=== PATIENT | female | born 1990 | race Caucasian/White ===

== ENCOUNTER → 2017-08-19 15:54 | Outpatient (CLI) | payer OTHER, MEDICAID, SELFPAY ==
[2017-08-19 16:06] LABS: Bacteria Urine None Seen
[2017-08-19 16:28] LABS: Add Manual Diff / Slide Review NO; Basophils Percent Auto 0.5 % (0-2); Eosinophils Percent Auto 0.5 % (2-4); Hematocrit 36.5 % (36-46); Hemoglobin 12.9 g/dL (12.0-16.0); Lymphocytes Percent Auto 26.1 % (25-40); Mean Corpuscular HGB Conc 35.2 % (30-36); Mean Corpuscular Volume 85.2 fL (80-100); Monocytes Percent Auto 10.5 % (3-14); Neutrophils Absolute Auto 5700 /uL (3000-5900); Neutrophils Percent Auto 62.4 % (50-75); Platelet Count 260 X10^3/uL (150-400); Red Blood Cell Count 4.29 X10^6/uL (4.0-5.2); Red Cell Distribution Width 12.7 % (11.6-14.8); White Blood Cell Count 9.1 X10^3/uL (4.5-11.0)
[2017-08-19 17:06] LABS: Appearance Urine UA CLEAR; Bilirubin Urine UA NEGATIVE (NEGATIVE); Color Urine UA YELLOW; Glucose Urine UA NEGATIVE (Normal); Ketones Urine UA NEGATIVE (NEGATIVE); Leukocyte Esterase Urine UA TRACE (NEGATIVE); Nitrite Urine UA Negative (Negative); Occult Blood Urine UA 1+ (Negative); Protein Urine UA NEGATIVE (Negative); Urobilinogen Urine UA 0.2 E.U./dL (0.2)
[2017-08-19 17:25] LABS: Hepatitis B Surface Antigen NEGATIVE s/c (NEGATIVE); Rubella Antibody IgG 33.1 IU/mL (>15)
[2017-08-19 17:42] LABS: RBC Urine 0-1/HPF (0-5/HPF); WBC Urine 0-1/HPF (0-5/HPF)
[2017-08-23 15:40] LABS: Varicella IgG Antibody > 4000.00 Index (< 135.00)
== END ==
PROVIDERS: Family Provider Family Medicine; PCP Family Medicine; Visit Provider Family Medicine
DX: Z34.90 Encounter for supervision of normal pregnancy, unspecified, unspecified trimester (principal)
CPT/HCPCS: 36415; 80055; 81001; 86787; 86850; 86900; 86901

== ENCOUNTER → 2017-09-05 10:21 | Outpatient (CLI) | payer OTHER, MEDICAID, SELFPAY ==
[2017-09-05 12:22] LABS: TSH w/ Reflex to FT4 0.34 uIU/mL (0.47-4.68)
[2017-09-05 12:47] LABS: Free T4, Direct Thyroxine 1.37 ng/dL (0.78-2.19)
== END ==
PROVIDERS: PCP Family Medicine; Visit Provider Family Medicine
DX: Z36.9 Encounter for antenatal screening, unspecified (principal); Z3A.10 10 weeks gestation of pregnancy
CPT/HCPCS: 36415; 84439; 84443

== ENCOUNTER → 2017-09-08 11:47 | Oncology outpatient (ONC) | payer OTHER, MEDICAID, SELFPAY ==
[2017-09-08 12:00] VITALS: BP 116/63; PULSE 70; RESP 16; TEMP 36.6
[2017-09-08] MEDS: LACTATED RINGERS 1,000 ML 1000 ML IV (12:09)
[2017-09-08] MEDS: ONDANSETRON 4 MG/2 ML INJ IV (12:10)
== END ==
LOC: ONC 11:47
PROVIDERS: Family Provider Family Medicine; PCP Family Medicine; Visit Provider Specialist
DX: O21.0 Mild hyperemesis gravidarum (principal)
CPT/HCPCS: 96361; 96374; 96375; J2405

== ENCOUNTER 2017-10-23 17:52 | Emergency (ER) | payer OTHER, MEDICAID, SELFPAY ==
[2017-10-23 17:56] VITALS: BP 116/73; PULSE 86; RESP 20; TEMP 36.7; O2SAT 96; BMI 22.8
--- NOTE | 2017-10-23 20:06 | ED_ITS ---
HPI - Female Genitourinary General Chief complaint: Urogenital-Female Stated complaint: 16 WEEKS PREG. CRAMPING Time Seen by Provider: 10/23/17 19:39 Source: patient Mode of arrival: ambulatory Limitations: no limitations History of Present Illness HPI Narrative: The patient is , currently 16 weeks . She is here due to lower abdominal cramping that has been intermittent for about 2 weeks. She is just coming through a period where she has had extreme nausea and vomiting, though symptoms have improved dramatically in the last week. She is controlling hydration better, but still had dark yellow urine this morning. She had mild dysuria. She has no fever or chills. She has no nausea, vomiting or diarrhea today. She is not prone to UTI. She has not yet feeling motion, but did have heart tones documented in clinic recently. She has no vaginal discharge or vaginal bleeding. She is unsure if activity increases the amount of cramping, she currently has no cramping. Related Data Previous Rx's Medication Instructions Recorded vit-iron fum-folic ac 1 cap PO QDAY #30 cap 05/24/17 [Mynatal] metronidazole 500 mg PO BID #14 tab 05/31/17 ondansetron HCl 4 mg tablet 4 mg PO Q6H PRN #20 tab 08/19/17 promethazine 25 mg rectal 25 mg UT Q6H PRN #12 each 09/08/17 suppository Allergies Allergy/AdvReac Type Severity Reaction Status Date / Time No Known Drug Allergies Allergy Verified 08/24/17 16:09 Review of Systems Review of Systems All systems reviewed & are unremarkable except as noted in HPI and below Constitutional Denies chills, Denies fever(s), Denies lethargy and Denies weakness Cardiovascular Denies chest pain, Denies irregular heart rhythm, Denies lightheadedness, Denies palpitations, Denies dyspnea, Denies dyspnea on exertion and Denies orthopnea Respiratory Denies cough, Denies dyspnea, Denies dyspnea on exertion and Denies wheezing Gastrointestinal Gastrointestinal: Reports as per HPI, Denies abdominal pain, Denies change in bowel habits, Denies diarrhea, Denies nausea and Denies vomiting Genitourinary Reports as per HPI, Denies hematuria, Denies flank pain, Denies urinary incontinence and Denies vaginal discharge Musculoskeletal Reports back pain, Denies muscle weakness, Denies numbness and Denies tingling Integumentary/Breasts Denies erythema, Denies rash and Denies wounds Neurologic Denies numbness, Denies tingling and Denies weakness Endocrine Denies palpitations Allergic/Immunologic Denies wheezing [facility] Social History Smoking Status: Never smoker Exam Initial Vital Signs Initial Vital Signs: Vital Signs Temperature 98.1 F 10/23/17 17:56 Pulse Rate 86 10/23/17 17:56 Respiratory Rate 20 10/23/17 17:56 Blood Pressure 116/73 10/23/17 17:56 Pulse Oximetry 96 10/23/17 17:56 Const General: cooperative and well developed Nutritional Appearance: well nourished Orientation: alert, awake, oriented x3 and not confused HENMT Head: normocephalic and atraumatic Nose: No nasal discharge Face and sinus: sinuses nontender, face symmetric, no sinus tenderness and No dry mucous membranes Mouth: oral mucosae normal and moist mucous membranes Teeth and gingiva: dentition normal Throat: tonsils normal and uvula midline Resp Effort & Inspection: normal respiratory effort, able to speak in complete sentences, no respiratory distress and no use of accessory muscles Auscultation: clear to auscultation bilaterally, no rales, no rhonchi and no wheezes Cardio Rate: regular rate Rhythm: regular rhythm Heart Sounds: no click, no gallops, no murmurs and no rubs Pulses: normal peripheral pulses GI Inspection: non-distended and other Palpation: soft, no hepatosplenomegaly and No tender Auscultation: normal bowel sounds Back/Spine/Pelvis Back: No CVA tenderness Course Orders Ordered: ED Orders 10/23/17 19:54 Urine Microscopic Stat Vital Signs - 8 hr 10/23/17 17:56 Temperature 98.1 F Pulse Rate 86 Respiratory Rate 20 Blood Pressure 116/73 Pulse Oximetry 96 MDM - Female Genitourinary Lab Data Attestation: I reviewed the patient's lab results. POC UA shows specific gravity of 1.030 and protein. There is no leukocytosis or nitrates. Discharge Plan Departure Patient Disposition: Home, Self-Care Clinical Impression: Discomfort during Instructions: DI for -- Discomforts and Remedies Activity Restrictions/Additional Instructions: Be sure your drinking enough water to maintain hydration as we discussed. Follow-up with Dr. Hayward or return here as needed for ongoing issues. Prescriptions: No Action vit-iron fum-folic ac [Mynatal] 1 EACH capsule 1 cap PO QDAY Qty: 30 RF: 12 metronidazole 500 MG tablet 500 mg PO BID Qty: 14 RF: 0 ondansetron HCl [Zofran] 4 mg tablet 4 mg PO Q6H PRN (Reason: nausea) Qty: 20 RF: 0 promethazine 25 mg suppository 25 mg UT Q6H PRN (Reason: Hyperemesis) Qty: 12 RF: 3
[2017-10-23 20:10] VITALS: BP 104/69; PULSE 73; RESP 20; O2SAT 100
[2017-10-23 20:19] LABS: Amorphous Sediment Urine 1+; Bacteria Urine Moderate (10-30); Mucus Urine 1+ (Negative); RBC Urine 1-5/HPF (0-5/HPF); Squamous Epithelial Cell Urine 5-10 /HPF; WBC Urine 5-10/HPF (0-5/HPF)
[2017-10-23 20:20] LABS: Culture Indicated Urine Specimen Cultured
== END 2017-10-23 20:11 | disposition home or self-care (01) ==
PROVIDERS: Emergency Provider Emergency Medicine; PCP Family Medicine
DX: R68.89 Other general symptoms and signs (principal); Z3A.16 16 weeks gestation of pregnancy
CPT/HCPCS: 81003; 81015; 87086; 99282

== ENCOUNTER → 2017-10-27 09:32 | Outpatient (CLI) | payer OTHER, MEDICAID, SELFPAY ==
[2017-11-02 05:13] LABS: AFP, Serum 37.5 ng/mL; Calc Gestational Age 16.3; Cigarette Smoker N; Donated Egg NOT GIVEN; Donor Egg Age NOT GIVEN; Estriol, Free 0.79 ng/mL; Inhibin A, Dimeric 120 pg/mL; Maternal Weight 145 lbs; Number of Fetuses NOT GIVEN; Previous Pregnancy Down Syndro NOT GIVEN; hCG, MoM 1.28; hCG, Serum 42.4 IU/mL
== END ==
PROVIDERS: PCP Family Medicine; Visit Provider Family Medicine
DX: Z3A.16 16 weeks gestation of pregnancy (principal)
CPT/HCPCS: 36415; 82105; 82677; 84702; 86336

== ENCOUNTER → 2017-11-24 12:28 | Outpatient (CLI) | payer OTHER, MEDICAID, SELFPAY ==
--- NOTE | 2017-11-24 12:30 | DI.US.S_ITS ---
PROCEDURE: US OB >= 14 WEEKS FETUS INDICATIONS: ANATOMIC SURVEY OUTSIDE/PRIOR DATING DATA: Last menstrual period (LMP): Not known. LMP-based estimated date of delivery (DIEGO): Not known. First dating scan (date and location): 08/17/17 Estimated date of delivery (DIEGO) from first dating scan: April 09, 2018. TECHNIQUE: Real-time scanning was performed of the fetus, with image documentation and biometric measurements. Endovaginal scanning: No COMPARISON: [facility], OB < 14 WEEKS + OB TRANSVAG, 08/17/2017, 18:11. [facility], OB <= 14 WEEKS FETUS, 09/05/2017, 9:45. FINDINGS: General: A single living intrauterine gestation is present. Presentation: Transverse. Placenta: Placental position is anterior, and low lying with the inferior tip 1.5 cm above the internal cervical os. Amniotic fluid index: 13.4 cm, normal range is 5-24 cm. heart rate: 149 beats per minute. Maternal cervical canal: 5.4 cm long. Normal lower limit is 2.5 cm. biometrics: Biparietal diameter: 20 weeks 6 days Head circumference: 20 weeks 5 days Abdominal circumference: 21 weeks 1 day Femur length: 21 weeks 4 days Estimated gestational age from initial scan: 20 weeks 5 days Composite gestational age from present scan: 21 weeks 1 day Estimated weight and percentile: 410 g; 74th percentile based on LMP. Measurement variability for biometric dating: +/- 7 days from 14 weeks to 15 weeks 6 days gestation, +/- 10 days from 16 weeks to 21 weeks 6 days gestation, +/- 2 weeks from 22 weeks to 27 weeks 6 days gestation, +/- 3 weeks for 28 weeks gestation or later. weight reference: 4500 g or EFW >90/95% is considered macrosomia or large for gestational age. EFW <10% is small for gestational age. EFW 5% or less is considered intra-uterine growth restriction. Anatomic survey: Neuro: Ventricles are non-dilated at less than 10 mm. Cisterna magna is normal at 3-11 mm. Cerebellum is normal in size and morphology. Nuchal skin fold: Normal at less than 6 mm between 14-21 weeks gestational age. Face: Nose and lips, facial profile are normal. Spine: No evidence for spina bifida. Heart: 4-chambered heart is present, with normal ventricular outflow tracts. Diaphragm: Diaphragm is intact. Stomach: Left-sided stomach is present. Kidneys: No hydronephrosis. Normal is less than 5 mm in 2nd trimester, less than 7 mm in 3rd trimester. Cord: 3-vessel cord has orthotopic insertion. Bladder: Normal in size. Extremities: All 4 extremities identified. IMPRESSION: 1. Single living IUP present with composite age today is 21 weeks 1 day corresponding to normal interval growth. 2. Normal anatomic survey. 3. Low-lying placenta. Followup recommended. Dictated by: Amador AVINA Interpreted: Ivanna Rashid MD on 11/24/2017 at 15:34 Approved by: Junior De La Rosa M.D. on 11/25/2017 at 14:45
== END ==
PROVIDERS: PCP Family Medicine; Visit Provider Family Medicine
DX: Z36.89 Encounter for other specified antenatal screening (principal); Z3A.21 21 weeks gestation of pregnancy
CPT/HCPCS: 76811

== ENCOUNTER → 2018-01-12 15:26 | Outpatient (CLI) | payer OTHER, MEDICAID, SELFPAY ==
[2018-01-12 15:30] LABS: Bacteria Urine None Seen; RBC Urine None Seen (0-5/HPF)
[2018-01-12 16:59] LABS: Appearance Urine UA CLEAR; Bilirubin Urine UA NEGATIVE (NEGATIVE); Color Urine UA YELLOW; Glucose Urine UA 1+ g/dL (Normal); Ketones Urine UA NEGATIVE (NEGATIVE); Leukocyte Esterase Urine UA NEGATIVE (NEGATIVE); Nitrite Urine UA NEGATIVE (Negative); Occult Blood Urine UA NEGATIVE (Negative); Protein Urine UA NEGATIVE (Negative); Urobilinogen Urine UA 0.2 E.U./dL (0.2)
[2018-01-12 17:18] LABS: Squamous Epithelial Cell Urine 1-5 /HPF; WBC Urine 0-1/HPF (0-5/HPF)
== END ==
PROVIDERS: Family Provider Family Medicine; PCP Family Medicine
DX: R39.9 Unspecified symptoms and signs involving the genitourinary system (principal)
CPT/HCPCS: 81001

== ENCOUNTER → 2018-01-16 10:14 | Outpatient (CLI) | payer OTHER, MEDICAID, SELFPAY ==
[2018-01-16 12:58] LABS: Hematocrit 33.6 % (36-46); Hemoglobin 11.6 g/dL (12.0-16.0)
[2018-01-16 13:07] LABS: GTT (PREG) 1 Hour PP 50gm Dose 83 mg/dL (76-139)
== END ==
PROVIDERS: PCP Family Medicine; Visit Provider Family Medicine
DX: Z34.82 Encounter for supervision of other normal pregnancy, second trimester (principal); Z3A.24 24 weeks gestation of pregnancy
CPT/HCPCS: 36415; 82950; 85014; 85018

== ENCOUNTER 2018-02-17 16:20 | Outpatient (CLI) | payer OTHER, MEDICAID, SELFPAY ==
--- NOTE | 2018-02-17 17:01 | PM.OBTRLD ---
Visit Information Visit Information Date of evaluation: 02/17/18 Primary OB Provider: Roger Orellana On-call OB Provider: Heaven Miller Reason for Evaluation: Yes rule out labor Comments/Additional reasons for admission: Pt with lower abdominal cramping present throughout the day. She also has felt that she is urinating more frequently than usual. No bleeding or LOF. Cramping is more constant, not intermittent. [facility] Social History Smoking Status: Never smoker Evaluation Evaluation Baseline heart rate: 140 Variability: Moderate (11-25) monitor accelerations: Present monitor decelerations: Absent Category of Tracing: I Comments: No significant contractions, mild uterine irritability Diagnosis, Plan/Disposition Final Diagnosis (1) Round ligament pain: Current Visit: Yes Status: Acute Plan/Disposition Plan: Pain most consistent with round ligament pain. No evidence labor. U/A negative. Discussed heat, tylenol PRN, stretches. OB Disposition: home
--- NOTE | 2018-02-17 17:05 | P.TNLD_ITS ---
Visit Information Visit Information Date of evaluation: 02/17/18 Primary OB Provider: Roger Orellana On-call OB Provider: Heaven Miller Reason for Evaluation: Yes rule out labor Comments/Additional reasons for admission: Pt with lower abdominal cramping present throughout the day. She also has felt that she is urinating more frequently than usual. No bleeding or LOF. Cramping is more constant, not intermittent. [facility] Social History Smoking Status: Never smoker Evaluation Evaluation Baseline heart rate: 140 Variability: Moderate (11-25) monitor accelerations: Present monitor decelerations: Absent Category of Tracing: I Comments: No significant contractions, mild uterine irritability Diagnosis, Plan/Disposition Final Diagnosis (1) Round ligament pain: Current Visit: Yes Status: Acute Plan/Disposition Plan: Pain most consistent with round ligament pain. No evidence labor. U/A negative. Discussed heat, tylenol PRN, stretches. OB Disposition: home
== END 2018-02-17 17:00 | disposition home or self-care (01) ==
LOC: LABOR 16:44 → OB 02-21 08:51
PROVIDERS: Family Provider Family Medicine; PCP Family Medicine; Visit Provider Family Medicine
DX: Z34.83 Encounter for supervision of other normal pregnancy, third trimester (principal); Z3A.32 32 weeks gestation of pregnancy; N94.9 Unspecified condition associated with female genital organs and menstrual cycle
CPT/HCPCS: 59025; G0378; G0379

== ENCOUNTER 2018-02-21 14:40 | Outpatient (CLI) | payer OTHER, MEDICAID, SELFPAY | END 2018-02-21 15:25 | disposition home or self-care (01) | LOC: LABOR 15:24 → OB 02-22 12:45 | PROVIDERS: Family Provider Family Medicine; PCP Family Medicine; Visit Provider Family Medicine | DX: Z34.83 Encounter for supervision of other normal pregnancy, third trimester (principal); Z3A.33 33 weeks gestation of pregnancy | CPT/HCPCS: 59025; G0378; G0379 ==

== ENCOUNTER → 2018-02-23 09:19 | Outpatient (CLI) | payer OTHER, MEDICAID, SELFPAY ==
--- NOTE | 2018-02-23 09:20 | DI.US.S_ITS ---
PROCEDURE: US OB LIMITED INDICATIONS: low lying placenta with hemorrage OUTSIDE/PRIOR DATING DATA: Last menstrual period (LMP): Not known. LMP-based estimated date of delivery (DIEGO): Not known. First dating scan (date and location): 08/17/17 Estimated date of delivery (DIEGO) from first dating scan: April 09, 2018. TECHNIQUE: Real-time scanning was performed of the fetus, with image documentation and biometric measurements. Endovaginal scanning: No COMPARISON: None. FINDINGS: General: A single living intrauterine gestation is present. Presentation: Vertex. Placenta: Placental position is anterior, without previa. Amniotic fluid index: 9.5 cm, normal range is 5-24 cm. heart rate: 127 beats per minute. Maternal cervical canal: 3.1 cm long. Normal lower limit is 2.5 cm. IMPRESSION: 1. Single living IUP redemonstrated and low lying placenta has resolved with the inferior margin of the placenta now well above the internal cervical os. Dictated by: Amador Wolff [facility] Interpreted: Junior De La Rosa MD on 02/23/2018 at 11:28 Approved by: Junior De La Rosa M.D. on 02/23/2018 at 12:34
== END ==
PROVIDERS: Family Provider Family Medicine; PCP Family Medicine; Visit Provider Family Medicine
DX: O44.52 Low lying placenta with hemorrhage, second trimester (principal)
CPT/HCPCS: 76815

== ENCOUNTER 2018-03-11 10:48 | Outpatient (CLI) | payer OTHER, MEDICAID, SELFPAY ==
--- NOTE | 2018-03-11 11:15 | PM.OBTRLD ---
Visit Information Visit Information Date of evaluation: 03/11/18 Primary OB Provider: Roger Orellana On-call OB Provider: Kate Bain Reason for Evaluation: Yes other Comments/Additional reasons for admission: Patient comes in complaining of edema cannot get her ring off her hand Vital Signs Vital Signs: Blood pressure 118/67, pulse 78 PFSH Social History Smoking Status: Never smoker Review of Systems Review of Systems Patient denies headaches, scotomata, epigastric pain. She has been having some mild cramping. No leakage of fluid. Good movement. No fevers. Patient complains of being unable to remove her ring due to swelling. All systems reviewed & are unremarkable except as noted in HPI and below Exam Narrative Exam Narrative: Patient with minimal edema. DTRs are normal. Abdomen is soft, nontender. Evaluation Evaluation Baseline heart rate: 135 Variability: Moderate (11-25) monitor accelerations: Present monitor decelerations: Absent Category of Tracing: I Diagnosis, Plan/Disposition Final Diagnosis (1) Edema during in third trimester: Current Visit: Yes Status: Acute Plan/Disposition Plan: Patient with mild edema but no other evidence of preeclampsia. Patient is to avoid salt. Signs and symptoms of preeclampsia reviewed with the patient. Keep her prior scheduled OB appointment. OB Disposition: home
== END 2018-03-11 11:30 | disposition home or self-care (01) ==
LOC: OB 03-15 13:12
PROVIDERS: Family Provider Family Medicine; PCP Family Medicine; Visit Provider Specialist
DX: Z34.83 Encounter for supervision of other normal pregnancy, third trimester (principal); Z3A.35 35 weeks gestation of pregnancy
CPT/HCPCS: 59025; G0378; G0379

== ENCOUNTER 2018-03-11 11:24 | Emergency (ER) | payer OTHER, MEDICAID, SELFPAY ==
[2018-03-11 11:29] VITALS: BP 114/75; PULSE 90; RESP 14; TEMP 36.4; O2SAT 100
--- NOTE | 2018-03-11 12:15 | ED.EXTPRO ---
HPI - Extremity Problem General Chief complaint: Extremity Problem,Nontraumatic Stated complaint: 35 WKS PREG,RING STUCK ON FINGER Time Seen by Provider: 03/11/18 11:30 Source: patient Mode of arrival: ambulatory Limitations: no limitations History of Present Illness HPI Narrative: 27-year-old at 35 weeks presents with a swollen right ring finger and a ring stuck on the finger. She states her hands and feet have been swelling over the past week or 2 and she noted the ring was stuck this morning. She has a little bit of pain and tingling in her finger but denies any injury and is otherwise well MD Complaint: extremity pain and extremity swelling Onset (ago): hour(s) Pain Consistency: constant Location: right Quality: aching Radiation: none Relieving factors: nothing Exacerbating factors: nothing Associated symptoms: denies other symptoms Related Data Previous Rx's Medication Instructions Recorded vit-iron fum-folic ac 1 cap PO QDAY #30 cap 05/24/17 [Mynatal] metronidazole 500 mg PO BID #14 tab 05/31/17 ondansetron HCl 4 mg tablet 4 mg PO Q6H PRN #20 tab 08/19/17 promethazine 25 mg rectal 25 mg PA Q6H PRN #12 each 09/08/17 suppository Allergies Allergy/AdvReac Type Severity Reaction Status Date / Time No Known Drug Allergies Allergy Verified 08/24/17 16:09 Review of Systems Review of Systems All systems reviewed & are unremarkable except as noted in HPI and below Constitutional Denies chills, Denies fever(s), Denies lethargy and Denies weakness Eyes Denies change in vision, Denies eye discharge, Denies irritation and Denies loss of vision ENT Ears, Nose, Mouth, and Throat: Denies change in voice, Denies neck pain and Denies sore throat Cardiovascular Denies chest pain, Denies irregular heart rhythm, Denies lightheadedness, Denies palpitations, Denies dyspnea, Denies dyspnea on exertion and Denies orthopnea Respiratory Denies cough, Denies dyspnea, Denies dyspnea on exertion and Denies wheezing Gastrointestinal Gastrointestinal: Denies abdominal pain, Denies change in bowel habits, Denies diarrhea, Denies nausea and Denies vomiting Genitourinary Denies hematuria, Denies flank pain, Denies urinary incontinence and Denies urinary urgency Musculoskeletal Denies neck pain Comments: Swelling and pain of right ring finger Integumentary/Breasts Denies pruritus, Denies erythema, Denies rash and Denies wounds Neurologic Denies confusion, Denies loss of vision and Denies weakness Psychiatric Denies anxiety, Denies confusion, Denies depression, Denies homicidal ideation and Denies suicidal ideation Endocrine Denies palpitations Hematologic/Lymphatic Denies easy bruising Allergic/Immunologic Denies wheezing PFSH Social History Smoking Status: Never smoker Exam Narrative Exam Narrative: GEN: 27-year-old female resting comfortably in no obvious significant distress EYES: Pupils are equal, round, and reactive to light and accommodation. Extraoccular muscles are intact bilaterally. There is no subconjunctival hemorrhage or exudate. CHEST: Lungs are clear to auscultation bilaterally and free of wheezes, rales, or rhonchi. Heart rate is regular rhythm, there are no murmurs, clicks, rubs, or gallops. There is no chest wall tenderness. ABD: Abdomen is soft and nontender. There is no guarding or rebound. Bowel sounds are normal in all 4 quadrants. There is no mass or organomegaly. EXT: Mild edema of hands. R ring finger with some erythema and a tight silver ring. Full ROM, no numbness or tingling SKIN: Warm, pink, and dry. No erythema or rash Initial Vital Signs Initial Vital Signs: Vital Signs Temperature 97.6 F 03/11/18 11:29 Pulse Rate 90 03/11/18 11:29 Respiratory Rate 14 03/11/18 11:29 Blood Pressure 114/75 03/11/18 11:29 Pulse Oximetry 100 03/11/18 11:29 Course Reevaluation(s) Reevaluation #1: Ring was removed successfully by nursing. Symptoms have resolved. Vital Signs - 8 hr 03/11/18 11:29 Temperature 97.6 F Pulse Rate 90 Respiratory Rate 14 Blood Pressure 114/75 Pulse Oximetry 100 Discharge Plan Departure Patient Disposition: Home Clinical Impression: Constrictive jewelry of finger Activity Restrictions/Additional Instructions: *You have been diagnosed with [ constrictive joule re-of right ring finger ] *What to do: * continue to take medications as directed *Follow up with your primary care provider in 2-3 days, call for an appointment. Let them know you were seen in the Emergency Department and that we ask that you be seen in follow up *Return to ER if you should have any new, worsening or concerning symptoms Prescriptions: No Action vit-iron fum-folic ac [Mynatal] 1 EACH capsule 1 cap PO QDAY Qty: 30 RF: 12 metronidazole 500 MG tablet 500 mg PO BID Qty: 14 RF: 0 ondansetron HCl [Zofran] 4 mg tablet 4 mg PO Q6H PRN (Reason: nausea) Qty: 20 RF: 0 promethazine 25 mg suppository 25 mg PA Q6H PRN (Reason: Hyperemesis) Qty: 12 RF: 3
[2018-03-11 12:48] VITALS: BP 115/66; PULSE 89; RESP 18; O2SAT 98
== END 2018-03-11 12:49 | disposition home or self-care (01) ==
PROVIDERS: Emergency Provider Emergency Medicine; Family Provider Family Medicine; PCP Family Medicine
DX: S60.444A External constriction of right ring finger, initial encounter (principal); W49.04XA Ring or other jewelry causing external constriction, initial encounter
CPT/HCPCS: 59025; 99282

== ENCOUNTER 2018-03-18 10:27 | Outpatient (CLI) | payer OTHER, MEDICAID, SELFPAY | END 2018-03-18 12:17 | disposition home or self-care (01) | LOC: LABOR 11:06 → OB 03-22 08:41 | PROVIDERS: Family Provider Family Medicine; PCP Family Medicine; Visit Provider Family Medicine | DX: O26.893 Other specified pregnancy related conditions, third trimester (principal); R07.81 Pleurodynia; Z3A.36 36 weeks gestation of pregnancy | CPT/HCPCS: 59025; 59050; G0378; G0379 ==

== ENCOUNTER 2018-03-18 12:27 | Emergency (ER) | payer OTHER, MEDICAID, SELFPAY ==
[2018-03-18 12:30] VITALS: BP 126/65; PULSE 85; RESP 20; TEMP 36.3; O2SAT 97
--- NOTE | 2018-03-18 13:30 | ED.ABDPAIN ---
HPI - Abdominal Pain <Ada Johns PA-C - Last Filed: 03/18/18 21:31> General Chief Complaint: Abdominal Pain Stated Complaint: pain radiating through abdoman to back Time Seen by Provider: 03/18/18 13:28 Source: patient Mode of arrival: ambulatory Limitations: no limitations History of Present Illness HPI narrative: This generally healthy 27-year-old female who is 34 weeks complains of right rib pain that started yesterday. She states that this feels like it is in her ribs and axillary area and can radiate into her back at times. She states that pain is worse with trying to lay on her right side or lean back, better sitting forward. She states that pain is sort of a crampy sensation. She states that she has had onset of cough 2 days ago, and pain started following this. Pain also worsens with cough and a little bit with lifting her arm in certain positions. She does not feel short of breath. She has had a little bit of swelling during but denies any new or increased swelling in the last couple of days. She does have some sore throat, no sinus headache, new body aches or earache. She has not had any new rash or known exposures. She has not had any vomiting or urinary symptoms. She states that she has not taken any pain medications for this, tries to void. She has tried heat which did not help. 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 Related Data Previous Rx's Medication Instructions Recorded vit-iron fum-folic ac 1 cap PO QDAY #30 cap 05/24/17 [Mynatal] metronidazole 500 mg PO BID #14 tab 05/31/17 ondansetron HCl 4 mg tablet 4 mg PO Q6H PRN #20 tab 08/19/17 promethazine 25 mg rectal 25 mg [place] Q6H PRN #12 each 09/08/17 suppository lidocaine [Lidoderm] 2 patch TOP DAILY #30 each 03/18/18 Allergies Allergy/AdvReac Type Severity Reaction Status Date / Time No Known Drug Allergies Allergy Verified 08/24/17 16:09 Review of Systems <Ada Johns PA-C - Last Filed: 03/18/18 21:31> Review of Systems All systems reviewed & are unremarkable except as noted in HPI and below Exam <Ada Johns PA-C - Last Filed: 03/18/18 21:31> Initial Vital Signs Initial Vital Signs: Vital Signs Temperature 97.4 F L 03/18/18 12:30 Pulse Rate 85 03/18/18 12:30 Respiratory Rate 20 03/18/18 12:30 Blood Pressure 126/65 03/18/18 12:30 Pulse Oximetry 97 03/18/18 12:30 GENERAL APPEARANCE: Patient sitting comfortably, in no distress. HEAD: No sinus TTP. EYES: PERRL, EOMI. ORAL CAVITY: Normal oropharynx. THROAT: Minimal erythema, no exudate NECK/THYROID: Neck supple, full range of motion, no cervical lymphadenopathy. CHEST: TTP over R. lateral ribs 4-5 LUNGS: Clear to auscultation bilaterally, no cough on exam. ABDOMEN: Soft, there is some positional right upper quadrant tenderness along the costal margin, no tenderness elsewhere, no CVAT EXTREMITIES: No edema or cyanosis, no point tenderness through the calves DERMATOLOGIC: No exanthem HEART: RRR without murmur, nl S1, S2, no S3 or S4. <Francois Colmenares DO - Last Filed: 03/19/18 07:08> Initial Vital Signs Initial Vital Signs: Vital Signs Temperature 97.4 F L 03/18/18 12:30 Pulse Rate 85 03/18/18 12:30 Respiratory Rate 20 03/18/18 12:30 Blood Pressure 126/65 03/18/18 12:30 Pulse Oximetry 97 03/18/18 12:30 Course <Ada Johns PA-C - Last Filed: 03/18/18 21:31> Additional Information: Patient's pain is easily reproducible and appears to be musculoskeletal. She will avoid NSAIDs due to late , will try long-acting Tylenol and Lidoderm patches. She agreed to return if any new or acutely worsening symptoms. She already has visit set up with her PCP 2 days Orders Ordered: Discontinued Medications Acetaminophen (Tylenol) 650 mg PO NOW ONE Stop: 03/18/18 13:46 Last Admin: 03/18/18 14:08 Dose: 650 mg Lidocaine (Lidoderm) 1 each TOP NOW ONE Stop: 03/18/18 14:44 Last Admin: 03/18/18 14:56 Dose: 1 each Vital Signs - 8 hr 03/18/18 14:47 Temperature 97.9 F Pulse Rate 69 Respiratory Rate 14 Blood Pressure [Left Arm] 110/62 Pulse Oximetry 100 <Francois Colmenares DO - Last Filed: 03/19/18 07:08> Orders Ordered: Discontinued Medications Acetaminophen (Tylenol) 650 mg PO NOW ONE Stop: 03/18/18 13:46 Last Admin: 03/18/18 14:08 Dose: 650 mg Lidocaine (Lidoderm) 1 each TOP NOW ONE Stop: 03/18/18 14:44 Last Admin: 03/18/18 14:56 Dose: 1 each Vital Signs - 8 hr 03/18/18 14:47 Temperature 97.9 F Pulse Rate 69 Respiratory Rate 14 Blood Pressure [Left Arm] 110/62 Pulse Oximetry 100 MDM - Abdominal Pain <Ada Johns PA-C - Last Filed: 03/18/18 21:31> Lab Data Lab Results 03/18/18 03/18/18 Range/Units 13:38 14:00 Urine RBC None seen (0-5/HPF) Urine WBC 5-10/hpf H (0-5/HPF) Urine Bacteria None seen (None) Ur Culture Indicated? Specimen cultured Micro UA Comment Not Reportable Influenza A & B (PCR) Negative (Negative) Point of care testing: Urine Dip Bedside Urine Glucose Negative Bedside Urine Bilirubin - Negative Bedside Urine Ketone - Negative Urine Specific [place] 1.020 Bedside Urine Occult Blood - Negative Bedside Urine pH 7.0 Bedside Urine Protein - Negative Bedside Urine Urobilinogen - Negative Bedside Urine Nitrite - Negative Bedside Urine Leukocytes + 70 Esterase <DO Travis Lockwood Last Filed: 03/19/18 07:08> Lab Data Lab Results 03/18/18 03/18/18 Range/Units 13:38 14:00 Urine RBC None seen (0-5/HPF) Urine WBC 5-10/hpf H (0-5/HPF) Urine Bacteria None seen (None) Ur Culture Indicated? Specimen cultured Micro UA Comment Not Reportable Influenza A & B (PCR) Negative (Negative) Point of care testing: Urine Dip Bedside Urine Glucose Negative Bedside Urine Bilirubin - Negative Bedside Urine Ketone - Negative Urine Specific [place] 1.020 Bedside Urine Occult Blood - Negative Bedside Urine pH 7.0 Bedside Urine Protein - Negative Bedside Urine Urobilinogen - Negative Bedside Urine Nitrite - Negative Bedside Urine Leukocytes + 70 Esterase Discharge Plan Departure Patient Disposition: Home Clinical Impression: Intercostal muscle strain Discharge Date/Time: 03/18/18 15:23 Interventions: ED Discharge Assessment Last Done: 03/18/18 15:23 Instructions: DI for Costochondritis Activity Restrictions/Additional Instructions: I have given you instructions for costochondritis because they are similar. I think you have strained the ribs and the muscles between them from coughing. we usually treat this with anti-inflammatories, but we try to avoid these in the later stages of . Please try taking Tylenol arthritis Strength or 8 hr (650 mg every 8 hr, extended release, ask the pharmacist if you cannot find this) as well as trying the topical lidocaine patches to help with pain. I have sent a prescription to your pharmacy for the prescription strength patches, but if they are not covered or too expensive, you can get 4% patches [id number] at the pharmacy. You can also use heat and ice. Do the ?pillow hugging? technique that we talked about at least several times daily and take deep breaths to help keep your lungs expanded. Follow up with your PCP on Tuesday as you have plan. You should return to the ED if you have any acutely worsening symptoms or new symptoms such as feeling short of breath, new fever or swelling Prescriptions: New lidocaine [Lidoderm] 5 % adhesive patch,medicated 2 patch TOP DAILY Qty: 30 RF: 0 No Action vit-iron fum-folic ac [Mynatal] 1 EACH capsule 1 cap PO QDAY Qty: 30 RF: 12 metronidazole 500 MG tablet 500 mg PO BID Qty: 14 RF: 0 ondansetron HCl [Zofran] 4 mg tablet 4 mg PO Q6H PRN (Reason: nausea) Qty: 20 RF: 0 promethazine 25 mg suppository 25 mg [place] Q6H PRN (Reason: Hyperemesis) Qty: 12 RF: 3 Referrals: Roger Orellana MD [Primary Care Provider] - <Francois Colmenares DO - Last Filed: 03/19/18 07:08> Cosign ED Attending Madisyn Attestation: I was available for consultation during this patient's emergency department encounter
--- NOTE | 2018-03-18 13:55 | ED_ITS ---
HPI - Abdominal Pain <Ada Johns PA-C - Last Filed: 03/18/18 21:31> General Chief Complaint: Abdominal Pain Stated Complaint: pain radiating through abdoman to back Time Seen by Provider: 03/18/18 13:28 Source: patient Mode of arrival: ambulatory Limitations: no limitations History of Present Illness HPI narrative: This generally healthy 27-year-old female who is 34 weeks complains of right rib pain that started yesterday. She states that this feels like it is in her ribs and axillary area and can radiate into her back at times. She states that pain is worse with trying to lay on her right side or lean back, better sitting forward. She states that pain is sort of a crampy sensation. She states that she has had onset of cough 2 days ago, and pain started following this. Pain also worsens with cough and a little bit with lifting her arm in certain positions. She does not feel short of breath. She has had a little bit of swelling during but denies any new or increased swelling in the last couple of days. She does have some sore throat, no sinus headache, new body aches or earache. She has not had any new rash or known exposures. She has not had any vomiting or urinary symptoms. She states that she has not taken any pain medications for this, tries to void. She has tried heat which did not help. 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 Related Data Previous Rx's Medication Instructions Recorded vit-iron fum-folic ac 1 cap PO QDAY #30 cap 05/24/17 [Mynatal] metronidazole 500 mg PO BID #14 tab 05/31/17 ondansetron HCl 4 mg tablet 4 mg PO Q6H PRN #20 tab 08/19/17 promethazine 25 mg rectal 25 mg [place] Q6H PRN #12 each 09/08/17 suppository lidocaine [Lidoderm] 2 patch TOP DAILY #30 each 03/18/18 Allergies Allergy/AdvReac Type Severity Reaction Status Date / Time No Known Drug Allergies Allergy Verified 08/24/17 16:09 Review of Systems <Ada Johns PA-C - Last Filed: 03/18/18 21:31> Review of Systems All systems reviewed & are unremarkable except as noted in HPI and below Exam <Ada Johns PA-C - Last Filed: 03/18/18 21:31> Initial Vital Signs Initial Vital Signs: Vital Signs Temperature 97.4 F L 03/18/18 12:30 Pulse Rate 85 03/18/18 12:30 Respiratory Rate 20 03/18/18 12:30 Blood Pressure 126/65 03/18/18 12:30 Pulse Oximetry 97 03/18/18 12:30 GENERAL APPEARANCE: Patient sitting comfortably, in no distress. HEAD: No sinus TTP. EYES: PERRL, EOMI. ORAL CAVITY: Normal oropharynx. THROAT: Minimal erythema, no exudate NECK/THYROID: Neck supple, full range of motion, no cervical lymphadenopathy. CHEST: TTP over R. lateral ribs 4-5 LUNGS: Clear to auscultation bilaterally, no cough on exam. ABDOMEN: Soft, there is some positional right upper quadrant tenderness along the costal margin, no tenderness elsewhere, no CVAT EXTREMITIES: No edema or cyanosis, no point tenderness through the calves DERMATOLOGIC: No exanthem HEART: RRR without murmur, nl S1, S2, no S3 or S4. <Francois Colmenares DO - Last Filed: 03/19/18 07:08> Initial Vital Signs Initial Vital Signs: Vital Signs Temperature 97.4 F L 03/18/18 12:30 Pulse Rate 85 03/18/18 12:30 Respiratory Rate 20 03/18/18 12:30 Blood Pressure 126/65 03/18/18 12:30 Pulse Oximetry 97 03/18/18 12:30 Course <Ada Johns PA-C - Last Filed: 03/18/18 21:31> Additional Information: Patient's pain is easily reproducible and appears to be musculoskeletal. She will avoid NSAIDs due to late , will try long- acting Tylenol and Lidoderm patches. She agreed to return if any new or acutely worsening symptoms. She already has visit set up with her PCP 2 days Orders Ordered: Discontinued Medications Acetaminophen (Tylenol) 650 mg PO NOW ONE Stop: 03/18/18 13:46 Last Admin: 03/18/18 14:08 Dose: 650 mg Lidocaine (Lidoderm) 1 each TOP NOW ONE Stop: 03/18/18 14:44 Last Admin: 03/18/18 14:56 Dose: 1 each Vital Signs - 8 hr 03/18/18 14:47 Temperature 97.9 F Pulse Rate 69 Respiratory Rate 14 Blood Pressure [Left Arm] 110/62 Pulse Oximetry 100 <Francois Colmenares DO - Last Filed: 03/19/18 07:08> Orders Ordered: Discontinued Medications Acetaminophen (Tylenol) 650 mg PO NOW ONE Stop: 03/18/18 13:46 Last Admin: 03/18/18 14:08 Dose: 650 mg Lidocaine (Lidoderm) 1 each TOP NOW ONE Stop: 03/18/18 14:44 Last Admin: 03/18/18 14:56 Dose: 1 each Vital Signs - 8 hr 03/18/18 14:47 Temperature 97.9 F Pulse Rate 69 Respiratory Rate 14 Blood Pressure [Left Arm] 110/62 Pulse Oximetry 100 MDM - Abdominal Pain <Ada Johns PA-C - Last Filed: 03/18/18 21:31> Lab Data Lab Results 03/18/18 03/18/18 Range/Units 13:38 14:00 Urine RBC None seen (0-5/HPF) Urine WBC 5-10/hpf H (0-5/HPF) Urine Bacteria None seen (None) Ur Culture Indicated? Specimen cultured Micro UA Comment Not Reportable Influenza A & B (PCR) Negative (Negative) Point of care testing: Urine Dip Bedside Urine Glucose Negative Bedside Urine Bilirubin - Negative Bedside Urine Ketone - Negative Urine Specific [place] 1.020 Bedside Urine Occult Blood - Negative Bedside Urine pH 7.0 Bedside Urine Protein - Negative Bedside Urine Urobilinogen - Negative Bedside Urine Nitrite - Negative Bedside Urine Leukocytes + 70 Esterase <DO Travis Lockwood Last Filed: 03/19/18 07:08> Lab Data Lab Results 03/18/18 03/18/18 Range/Units 13:38 14:00 Urine RBC None seen (0-5/HPF) Urine WBC 5-10/hpf H (0-5/HPF) Urine Bacteria None seen (None) Ur Culture Indicated? Specimen cultured Micro UA Comment Not Reportable Influenza A & B (PCR) Negative (Negative) Point of care testing: Urine Dip Bedside Urine Glucose Negative Bedside Urine Bilirubin - Negative Bedside Urine Ketone - Negative Urine Specific [place] 1.020 Bedside Urine Occult Blood - Negative Bedside Urine pH 7.0 Bedside Urine Protein - Negative Bedside Urine Urobilinogen - Negative Bedside Urine Nitrite - Negative Bedside Urine Leukocytes + 70 Esterase Discharge Plan Departure Patient Disposition: Home Clinical Impression: Intercostal muscle strain Discharge Date/Time: 03/18/18 15:23 Interventions: ED Discharge Assessment Last Done: 03/18/18 15:23 Instructions: DI for Costochondritis Activity Restrictions/Additional Instructions: I have given you instructions for costochondritis because they are similar. I think you have strained the ribs and the muscles between them from coughing. we usually treat this with anti-inflammatories, but we try to avoid these in the later stages of . Please try taking Tylenol arthritis Strength or 8 hr (650 mg every 8 hr, extended release, ask the pharmacist if you cannot find this) as well as trying the topical lidocaine patches to help with pain. I have sent a prescription to your pharmacy for the prescription strength patches , but if they are not covered or too expensive, you can get 4% patches over-the- counter at the pharmacy. You can also use heat and ice. Do the ?pillow hugging ? technique that we talked about at least several times daily and take deep breaths to help keep your lungs expanded. Follow up with your PCP on Tuesday as you have plan. You should return to the ED if you have any acutely worsening symptoms or new symptoms such as feeling short of breath, new fever or swelling Prescriptions: New lidocaine [Lidoderm] 5 % adhesive patch,medicated 2 patch TOP DAILY Qty: 30 RF: 0 No Action vit-iron fum-folic ac [Mynatal] 1 EACH capsule 1 cap PO QDAY Qty: 30 RF: 12 metronidazole 500 MG tablet 500 mg PO BID Qty: 14 RF: 0 ondansetron HCl [Zofran] 4 mg tablet 4 mg PO Q6H PRN (Reason: nausea) Qty: 20 RF: 0 promethazine 25 mg suppository 25 mg [place] Q6H PRN (Reason: Hyperemesis) Qty: 12 RF: 3 Referrals: Roger Orellana MD [Primary Care Provider] - <Francois Colmenares DO - Last Filed: 03/19/18 07:08> Cosign ED Attending Madisyn Attestation: I was available for consultation during this patient's emergency department encounter
[2018-03-18] MEDS: ACETAMINOPHEN 325 MG TABLET 650 MG PO (14:08)
[2018-03-18 14:19] LABS: Influenza A and B by PCR Rapid Negative (Negative)
[2018-03-18 14:34] LABS: Bacteria Urine None Seen; RBC Urine None Seen (0-5/HPF)
[2018-03-18 14:47] VITALS: BP 110/62; PULSE 69; RESP 14; TEMP 36.6; O2SAT 100
[2018-03-18 14:56] LABS: Culture Indicated Urine Specimen Cultured; WBC Urine 5-10/HPF (0-5/HPF)
[2018-03-18] MEDS: LIDOCAINE PATCH 1 EACH ADH..PATCH TOP (14:56)
== END 2018-03-18 15:23 | disposition home or self-care (01) ==
PROVIDERS: Emergency Provider Internal Medicine; PCP Family Medicine
DX: S29.011A Strain of muscle and tendon of front wall of thorax, initial encounter (principal)
CPT/HCPCS: 81003; 81015; 87086; 87400; 99282; 99283

== ENCOUNTER → 2018-03-20 09:55 | Outpatient (CLI) | payer OTHER, MEDICAID, SELFPAY ==
[2018-03-21 08:56] LABS: Strep Grp B PCR NEG for Grp B Strep
== END ==
PROVIDERS: PCP Family Medicine; Visit Provider Family Medicine
DX: Z34.83 Encounter for supervision of other normal pregnancy, third trimester (principal); Z3A.36 36 weeks gestation of pregnancy
CPT/HCPCS: 87653

== ENCOUNTER 2018-04-13 07:10 | Inpatient (IN) | payer OTHER, MEDICAID, SELFPAY ==
--- NOTE | 2018-04-13 07:32 | PM.HP.1 ---
History of Present Illness Date Patient Seen: 04/13/18 Time Patient Seen: 07:32 Chief complaint: OBS Narrative: Patient is a G2 para 1 with an estimated due date of 04/12/2018 consistent with LMP and early ultrasound. Patient is now 40 weeks and 1 day gestational age. Patient is here today for induction of labor at the request of the patient for elective induction. Induction consent was obtained risks benefits of induction were reviewed with the patient. Patient's Roy score in the office yesterday with 7 and this morning it is 9. Patient established care at approximately 8 weeks gestational age. Patient had routine follow-up during her . problems include enlarged thyroid with normal TSH. Patient had a total approximate weight gain of 40 lb during her . labs show positive blood type antibody screen negative VDRL nonreactive hepatitis-B surface antigen negative GC chlamydia negative rubella immune. TSH normal. Diabetes screen normal. Last hemoglobin 11.6 1 hr GGT 83. Initial 20 week ultrasound showed low lying placenta further ultrasound showed normal placenta. GBS status test is negative. Patient has no significant past medical history. Patient is on vitamins. Patient does not smoke or drink. She has a history of anxiety. Previous history includes a vaginal delivery with the use of a vacuum at 7 lb 3 oz. Patient History Medical History Healthy female adult (Chronic) Family & Social History Family History: Reviewed 04/13/18 by Roger Orellana MD Tobacco & Substance use: Smoking Status Never smoker Substance Use Type does not use Meds Home Medications Medication Instructions Recorded Confirmed Type vit-iron fum-folic ac 1 cap PO QDAY #30 cap 05/24/17 08/24/17 Rx [Mynatal] metronidazole 500 mg PO BID #14 tab 05/31/17 08/24/17 Rx ondansetron HCl 4 mg tablet 4 mg PO Q6H PRN #20 tab 08/19/17 08/24/17 Rx promethazine 25 mg rectal 25 mg [place] Q6H PRN #12 each 09/08/17 Rx suppository lidocaine [Lidoderm] 2 patch TOP DAILY #30 each 03/18/18 Rx Allergies Allergy/AdvReac Type Severity Reaction Status Date / Time No Known Drug Allergies Allergy Verified 08/24/17 16:09 Exam Narrative Exam Narrative: . General: Alert no apparent distress. Affect is appropriate. Rob it is uncomfortable. HEENT: Neck is supple without lymphadenopathy pupils equal round and reactive. Cardio: S1-S2 regular rate and rhythm. Respiratory: Lungs clear to auscultation. Abdomen: Gravid. Extremities: Normal deep tendon reflexes trace edema. Vaginal exam: 2-3 cm 70% effaced -1 station mid cervix which is soft. [place]: No contractions heart tones at 130 has not been on the monitor long enough for a category yet Assessment & Plan Plan: Assessment/Plan Narrative: 27-year-old G2 para 1 at 40 weeks gestational age for elective induction. Patient's Roy score is 9. Reviewed and discussed risk benefits of elective induction. Which increased risks of operative delivery and failed induction. Discussed with patient timing of this. Patient states she would like an epidural. Will go ahead and start an IV. Obtain CBC type and screen platelet count. Will start Pitocin per protocol. She is GBS negative. Will continue with continuous electronic heart monitoring. And amniotomy when appropriate. Labor induction orders were placed in the computer. Informed consent and discussion of all the complications of were reviewed with patient and signed.
[2018-04-13] MEDS: LACTATED RINGERS 1,000 ML 100 ML IV ×2 (08:42→14:49)
[2018-04-13] MEDS: OXYTOCIN PREMIX 30 UNIT/500 ML PLAST..BAG IV (08:42)
[2018-04-13 08:59] LABS: Add Manual Diff / Slide Review NO; Basophils Absolute Auto 300 /uL (0-100); Basophils Percent Auto 2.5 % (0-2); Eosinophils Absolute Auto 100 /uL (0-450); Eosinophils Percent Auto 0.6 % (2-4); Hematocrit 34.6 % (36-46); Hemoglobin 11.6 g/dL (12.0-16.0); Lymphocytes Absolute Auto 2000 /uL (1100-4500); Lymphocytes Percent Auto 17.7 % (25-40); Mean Corpuscular HGB Conc 33.5 % (30-36); Mean Corpuscular Hemoglobin 27.9 PG (26-34); Mean Corpuscular Volume 83.2 fL (80-100); Monocytes Absolute Auto 900 /uL (0-900); Monocytes Percent Auto 8.3 % (3-14); Neutrophils Absolute Auto 7800 /uL (1500-7000); Neutrophils Percent Auto 70.9 % (50-75); Platelet Count 254 X10^3/uL (150-400); Red Blood Cell Count 4.15 X10^6/uL (4.0-5.2); Red Cell Distribution Width 13.9 % (11.6-14.8)
[2018-04-13 09:40] VITALS: BP 132/62
--- NOTE | 2018-04-13 11:40 | P.PNOB_ITS ---
Date/Time Date Patient Seen: 04/13/18 Time Patient Seen: 10:39 Pain Control Pain control: tolerating well Pelvic Exam Dilation (cm): 4 Effacement (%): 80 station: -1 Amniotic membrane status: Ruptured Comments: Prep amniotomy rupture of membranes clear fluid. Category 1 tracing 9 :00 a.m. you Pitocin. Adequate contractions. Assessment and Plan Assessment: induction ongoing Comments: Amniotomy clear fluid continue with Pitocin augmentation induction. heart tones category 1.
--- NOTE | 2018-04-13 15:48 | PM.OBPRVD ---
Delivery date: 04/13/18 Narrative: Stage I of labor. Approximately 5 hr. Category 1 tracing. Patient was brought to the hospital for induction of labor. She was given Pitocin. Gradually increase to 9 milliunits and had good contraction pattern. She had amniotomy of clear fluid. She had an IV started and received epidural anesthesia at 11:30 a.m.. During stage I of labor she had adequate contractions with normal reassuring category 1 heart tracing throughout. At the end of stage I she began to have some late and intermittent decelerations after her epidural associated with hypotension. Patient was given intrauterine resuscitation with fluid bolus oxygen Pitocin was stopped. Her cervix was examined and patient became complete. Stage II of labor approximately 2 hr. Patient pushed to deliver over an intact perineum a viable female . Baby was in occiput anterior position. After the delivery of the head there was no nuchal cord. Patient had spontaneous delivery of the shoulders. Patient had a vigorous cry. During stage II of labor she had some variable and late decelerations which progressively got worse through stage II. We are contemplating a VAC and then patient had the good position change baby descended rather rapidly and delivered rapidly once she got +2. Baby's Apgars were 7 and 9. Stage III. 10 min. Delivery of intact placenta with 3 vessels. Patient's fundus was firm. Patient was given Pitocin that was in the IV fluid and ran in a approximately 10 mm you. Patient had repair of first-degree midline tear. After his mom and baby were resting comfortably.
[2018-04-13] MEDS: IBUPROFEN 600 MG TABLET PO ×2 (17:21→23:31)
[2018-04-13] MEDS: HYDROCODONE/ACET 5/325 TABLET 1 TAB PO (18:31)
[2018-04-13] MEDS: DOCUSATE 250 MG CAPSULE PO (18:33)
[2018-04-14] MEDS: LANOLIN OINT 7 GM 1 APPLIC TOP (04:34)
[2018-04-14 07:21] LABS: Hematocrit 29.1 % (36-46); Hemoglobin 9.7 g/dL (12.0-16.0)
--- NOTE | 2018-04-14 08:01 | P.DS_ITS ---
History of Present Illness Chief complaint: LABOR AND DELIVERY Narrative: Patient is a G2 para 1 with an estimated due date of 04/12/2018 consistent with LMP and early ultrasound. Patient is now 40 weeks and 1 day gestational age. Patient is here today for induction of labor at the request of the patient for elective induction. Induction consent was obtained risks benefits of induction were reviewed with the patient. Patient's Roy score in the office yesterday with 7 and this morning it is 9. Patient established care at approximately 8 weeks gestational age. Patient had routine follow-up during her . problems include enlarged thyroid with normal TSH. Patient had a total approximate weight gain of 40 lb during her . labs show positive blood type antibody screen negative VDRL nonreactive hepatitis-B surface antigen negative GC chlamydia negative rubella immune. TSH normal. Diabetes screen normal. Last hemoglobin 11.6 1 hr GGT 83. Initial 20 week ultrasound showed low lying placenta further ultrasound showed normal placenta. GBS status test is negative. Patient has no significant past medical history. Patient is on vitamins. Patient does not smoke or drink. She has a history of anxiety. Previous history includes a vaginal delivery with the use of a vacuum at 7 lb 3 oz. Discharge Providers Date of admission: 04/13/18 07:10 Primary care physician: Roger Orellana MD Consults: 04/13/18 16:10 Consult to Cardiology Tech Routine Comment: Discharge provider: Roger Orellana MD Discharge Date: 04/14/18 Summary Discharge Diagnosis: 27-year-old G2 now para 2 hospitalized for induction of labor delivery of viable female and routine care Hospital Course: 27-year-old G2 para 240 weeks gestational age admitted for elective induction with Pitocin. Patient went on to deliver a viable female without difficulty. She had routine care. The time of discharge was ambulating eating normal amount of vaginal bleeding she had mild swelling. She was tolerating her diet. She was afebrile. Hemoglobin hematocrit was stable. Breast-feeding was going well. Exam Narrative Exam Narrative: General: Alert no apparent distress. Affect is appropriate. Rob it is uncomfortable. HEENT: Neck is supple without lymphadenopathy pupils equal round and reactive. Cardio: S1-S2 regular rate and rhythm. Respiratory: Lungs clear to auscultation. Abdomen: Uterus firm. Extremities: Normal deep tendon reflexes trace edema. Objective Labs Result Diagrams: 04/14/18 06:47 Labs: Laboratory Results - last 24 hr 04/13/18 04/13/18 04/14/18 08:30 08:30 06:47 WBC 11.0 RBC 4.15 Hgb 11.6 L 9.7 L Hct 34.6 L 29.1 L MCV 83.2 MCH 27.9 MCHC 33.5 RDW 13.9 Plt Count 254 Neut % (Auto) 70.9 Lymph % (Auto) 17.7 L [place] % (Auto) 8.3 Eos % (Auto) 0.6 L Baso % (Auto) 2.5 H Neut # (Auto) 7800 H Lymph # (Auto) 2000 [place] # (Auto) 900 Eos # (Auto) 100 Baso # (Auto) 300 H Blood Type O Positive Antibody Screen Negative Discharge Plan Discharge Plan Patient Disposition: Home Discharge comment: Follow-up in [address] Orellana Discharge Med Rec/Prescriptions Prescriptions: New docusate sodium [Colace] 100 mg capsule 100 mg PO BID Qty: 20 RF: 0 ibuprofen [IBU] 800 mg tablet 800 mg PO TID Qty: 30 RF: 0 Continue vit-iron fum-folic ac [Mynatal] 1 EACH capsule 1 cap PO QDAY Qty: 30 RF: 12 Discontinued metronidazole 500 MG tablet 500 mg PO BID Qty: 14 RF: 0 ondansetron HCl [Zofran] 4 mg tablet 4 mg PO Q6H PRN (Reason: nausea) Qty: 20 RF: 0 promethazine 25 mg suppository 25 mg MA Q6H PRN (Reason: Hyperemesis) Qty: 12 RF: 3 lidocaine [Lidoderm] 5 % adhesive patch,medicated 2 patch TOP DAILY Qty: 30 RF: 0 Discharge Data Primary Care Provider: Roger Orellana Attending Provider: Roger Orellana Admit Date/Time: 04/13/18 07:10
[2018-04-14] MEDS: IBUPROFEN 600 MG TABLET PO ×2 (09:03→17:06)
[2018-04-14] MEDS: DOCUSATE 250 MG CAPSULE PO (09:08)
[2018-04-14 14:26] VITALS: BP 127/73; PULSE 98; TEMP 36.8
[2018-04-14 14:37] VITALS: BP 127/73; PULSE 98; RESP 16; TEMP 36.8
== END 2018-04-14 17:30 | disposition home or self-care (01) | DRG 560 ==
PROVIDERS: Admitting Provider Family Medicine; PCP Family Medicine; Visit Provider Family Medicine
DX: O76 Abnormality in fetal heart rate and rhythm complicating labor and delivery (principal); Z3A.40 40 weeks gestation of pregnancy; Z37.0 Single live birth; O70.0 First degree perineal laceration during delivery
CPT/HCPCS: 01967; 36415; 59050; 59409; 85014; 85018; 85025; 86850; 86900; 86901; G0379; J2590

== ENCOUNTER → 2019-05-14 13:37 | Outpatient (CLI) | payer OTHER, MEDICAID, SELFPAY ==
[2019-05-14 14:06] LABS: Appearance Urine UA CLEAR; Bilirubin Urine UA NEGATIVE (NEGATIVE); Color Urine UA YELLOW; Glucose Urine UA NEGATIVE (Negative); Ketones Urine UA NEGATIVE (NEGATIVE); Leukocyte Esterase Urine UA 1+ (NEGATIVE); Nitrite Urine UA NEGATIVE (Negative); Occult Blood Urine UA 1+ (Negative); Protein Urine UA NEGATIVE (Negative); Urobilinogen Urine UA 0.2 E.U./dL (0.2); pH Urine UA 6.5 (4.5-8.0)
[2019-05-14 14:17] LABS: Amorphous Sediment Urine 1+; Bacteria Urine Moderate (10-30); Culture Indicated Urine Specimen Cultured; RBC Urine 0-1/HPF (0-5/HPF); Squamous Epithelial Cell Urine 1-5 /HPF (0-5/HPF); WBC Urine 10-30/HPF (0-5/HPF)
== END ==
PROVIDERS: PCP Family Medicine; Referring Provider Family Medicine; Visit Provider Family Medicine
DX: R30.0 Dysuria (principal)
CPT/HCPCS: 81003; 81015; 87077; 87086; 87147; 87186

== ENCOUNTER → 2019-06-19 09:55 | Outpatient (CLI) | payer OTHER, MEDICAID, SELFPAY ==
[2019-06-19 10:38] LABS: Appearance Urine UA CLEAR; Bilirubin Urine UA NEGATIVE (NEGATIVE); Color Urine UA YELLOW; Glucose Urine UA NEGATIVE (Negative); Ketones Urine UA NEGATIVE (NEGATIVE); Leukocyte Esterase Urine UA NEGATIVE (NEGATIVE); Nitrite Urine UA NEGATIVE (Negative); Occult Blood Urine UA TRACE-INTACT (Negative); Protein Urine UA NEGATIVE (Negative); Urobilinogen Urine UA 0.2 E.U./dL (0.2)
[2019-06-19 10:49] LABS: Add Manual Diff / Slide Review NO; Basophils Absolute Auto 0 /uL (0-100); Basophils Percent Auto 0.4 % (0-2); Eosinophils Absolute Auto 0 /uL (0-450); Eosinophils Percent Auto 0.2 % (2-4); Hematocrit 39.8 % (36-46); Hemoglobin 13.7 g/dL (12.0-16.0); Lymphocytes Absolute Auto 1800 /uL (1100-4500); Lymphocytes Percent Auto 20.6 % (25-40); Mean Corpuscular HGB Conc 34.4 % (30-36); Mean Corpuscular Hemoglobin 29.8 PG (26-34); Mean Corpuscular Volume 86.7 fL (80-100); Monocytes Absolute Auto 800 /uL (0-900); Neutrophils Absolute Auto 6200 /uL (1500-7000); Neutrophils Percent Auto 69.8 % (50-75); Platelet Count 306 X10^3/uL (150-400); Red Blood Cell Count 4.59 X10^6/uL (4.0-5.2); Red Cell Distribution Width 12.8 % (11.6-14.8); White Blood Cell Count 8.9 X10^3/uL (4.5-11.0)
[2019-06-20 01:37] LABS: RPR Screen Non Reactive (Non Reactive)
[2019-06-20 06:06] LABS: Varicella IgG Antibody 2934 index (Immune >165)
[2019-06-21 15:07] LABS: Hepatitis B Surface Antigen NEGATIVE s/c (NEGATIVE); Rubella Antibody IgG 35.9 IU/mL (>15)
[2019-06-21 15:22] LABS: HIV 1 & 2 Ab/Ag 4th Gen Combo NEGATIVE (NEGATIVE); Hep C Virus Ab w/Reflex Quant NEGATIVE s/c (NEGATIVE)
== END ==
PROVIDERS: PCP Family Medicine; Referring Provider Family Medicine; Visit Provider Family Medicine
DX: Z34.81 Encounter for supervision of other normal pregnancy, first trimester (principal)
CPT/HCPCS: 36415; 80055; 81003; 86787; 86803; 86850; 86900; 86901; 87086; 87389

== ENCOUNTER → 2019-08-14 08:41 | Outpatient (CLI) | payer OTHER, MEDICAID, SELFPAY ==
[2019-08-16 20:36] LABS: Calc Gestational Age EDD (.); Inhibin A, Dimeric 114.17 pg/mL (.); Inhibin A, MoM 0.69 (.); Maternal Ethnicity Caucasian (.); Maternal Weight 157 lbs (.); Number of Fetuses No (.); OSBR Risk 1 IN 7137 (.); Results Report (.); Test Results *Screen Negative* (.); hCG, MoM 0.83 (.); hCG, Serum 34915 mIU/mL (.)
== END ==
PROVIDERS: PCP Family Medicine; Referring Provider Family Medicine; Visit Provider Family Medicine
DX: Z34.82 Encounter for supervision of other normal pregnancy, second trimester (principal); Z3A.16 16 weeks gestation of pregnancy
CPT/HCPCS: 36415; 82105; 82677; 84702; 86336; 87086

== ENCOUNTER → 2019-09-11 09:07 | Outpatient (CLI) | payer OTHER, MEDICAID, SELFPAY ==
--- NOTE | 2019-09-11 09:08 | DI.US.S_ITS ---
PROCEDURE: US OB >= 14 WEEKS FETUS INDICATIONS: ANATOMIC SURVEY OUTSIDE/PRIOR DATING DATA: Last menstrual period (LMP): 04/25/19. LMP-based estimated date of delivery (DIEGO): 01/30/20 First dating scan (date and location): 09/11/19 Estimated date of delivery (DIEGO) from first dating scan: 03/31/19. TECHNIQUE: Real-time scanning was performed of the fetus, with image documentation and biometric measurements. COMPARISON: [facility], , OB >= 14 WEEKS FETUS, 11/24/2017, 13:09. FINDINGS: General: A single living intrauterine gestation is present. Presentation: Breech. Placenta: Placental position is anterior, without previa. Amniotic fluid index: 11.1 cm, normal range is 5-24 cm. heart rate: 143 beats per minute. Maternal cervical canal: 3.5 cm long. Normal lower limit is 2.5 cm. Report any funneling of internal cervical os: % of canal length, shape (U or V), width or any U-shaped funneling. biometrics: Biparietal diameter: 4.4 cm 19 weeks 4 days Head circumference: 17.3 cm 19 weeks 6 days Abdominal circumference: 14.3 cm 19 weeks 5 days Femur length: 3.3 cm 20 weeks 3 days Estimated gestational age from initial scan: not applicable. Composite gestational age from present scan: 19 weeks 6 days Estimated weight and percentile: 325g 53rd percentile Measurement variability for biometric dating: +/- 7 days from 14 weeks to 15 weeks 6 days gestation, +/- 10 days from 16 weeks to 21 weeks 6 days gestation, +/- 2 weeks from 22 weeks to 27 weeks 6 days gestation, +/- 3 weeks for 28 weeks gestation or later. weight reference: 4500 g or EFW >90/95% is considered macrosomia or large for gestational age. EFW <10% is small for gestational age. EFW 5% or less is considered intra-uterine growth restriction. Anatomic survey: Neuro: Ventricles are non-dilated at less than 10 mm. Cisterna magna is normal at 3-11 mm. Cerebellum is normal in size and morphology. Nuchal skin fold: Normal at less than 6 mm between 14-21 weeks gestational age. Face: Nose and lips, facial profile are not well visualized. Spine: No evidence for spina bifida. Heart: 4-chambered heart is present, with normal ventricular outflow tracts. Diaphragm: Diaphragm is intact. Stomach: Left-sided stomach is present. Kidneys: No hydronephrosis. Normal is less than 5 mm in 2nd trimester, less than 7 mm in 3rd trimester. Cord: 3-vessel cord has orthotopic insertion. Bladder: Normal in size. Extremities: All 4 extremities identified. IMPRESSION: 1. Single live intrauterine with ultrasound gestational age of 19 weeks 6 days corresponding to ultrasound DIEGO of 01/30/20. 2. profile is not well-visualized. Followup imaging is recommended. Dictated by: Ivanna Rashid M.D. on 09/11/2019 at 15:44 Approved by: Ivanna Rashid M.D. on 09/11/2019 at 15:53
== END ==
PROVIDERS: PCP Family Medicine; Referring Provider Family Medicine; Visit Provider Family Medicine
DX: Z34.82 Encounter for supervision of other normal pregnancy, second trimester; Z3A.20 20 weeks gestation of pregnancy
CPT/HCPCS: 76811

== ENCOUNTER → 2019-10-16 07:08 | Outpatient (CLI) | payer OTHER, MEDICAID, SELFPAY ==
[2019-10-16 09:07] LABS: Hemoglobin 11.3 g/dL (12.0-16.0)
[2019-10-16 09:26] LABS: GTT (PREG) 1 Hour PP 50gm Dose 138 mg/dL (76-139)
== END ==
PROVIDERS: PCP Family Medicine; Referring Provider Family Medicine; Visit Provider Family Medicine
DX: Z34.82 Encounter for supervision of other normal pregnancy, second trimester (principal); Z3A.24 24 weeks gestation of pregnancy
CPT/HCPCS: 36415; 82950; 85014; 85018

== ENCOUNTER → 2019-10-17 06:53 | Outpatient (CLI) | payer OTHER, MEDICAID, SELFPAY ==
[2019-10-17 08:05] LABS: Glucose Fasting 101 mg/dL (70-100)
[2019-10-17 10:06] LABS: Glucose 1 Hour 144 mg/dL (70-170)
[2019-10-17 10:08] LABS: Glucose 2 Hour 142 mg/dL (70-140)
[2019-10-17 10:22] LABS: Glucose Tol Interpretation INTERPRETATION
[2019-10-17 11:02] LABS: Glucose 3 Hour 84 mg/dL (70-115)
== END ==
PROVIDERS: PCP Family Medicine; Referring Provider Family Medicine; Visit Provider Family Medicine
DX: R73.09 Other abnormal glucose (principal)
CPT/HCPCS: 36415; 82951; 82952

== ENCOUNTER → 2020-01-01 08:24 | Outpatient (CLI) | payer OTHER, MEDICAID, SELFPAY ==
[2020-01-02 10:45] LABS: Strep Grp B PCR NEG for Grp B Strep
== END ==
PROVIDERS: PCP Family Medicine; Visit Provider Family Medicine
DX: Z34.83 Encounter for supervision of other normal pregnancy, third trimester (principal); Z3A.36 36 weeks gestation of pregnancy
CPT/HCPCS: 87653

== ENCOUNTER 2020-01-02 17:06 | Outpatient (CLI) | payer OTHER, MEDICAID, SELFPAY ==
--- NOTE | 2020-01-02 18:45 | PM.OBTRLD ---
Visit Information Visit Information Date of evaluation: 01/02/20 Primary OB Provider: Roger Orellana On-call OB Provider: Kate Bain Reason for Evaluation: Yes rupture of membranes Vital Signs Vital Signs: Blood pressure 112/55, pulse 71, temperature 97.1? 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 Patient reassured she will follow up with her primary OB provider at her regularly scheduled OB appointment OB Disposition: home
== END 2020-01-02 17:45 | disposition home or self-care (01) ==
LOC: LABOR 17:26 → OB 01-07 16:28
PROVIDERS: PCP Family Medicine; Referring Provider Specialist; Visit Provider Specialist
DX: O26.893 Other specified pregnancy related conditions, third trimester (principal); N89.8 Other specified noninflammatory disorders of vagina; Z3A.36 36 weeks gestation of pregnancy
CPT/HCPCS: 59025; 84112; G0378; G0379

== ENCOUNTER 2020-01-23 00:55 | Inpatient (IN) | payer OTHER, MEDICAID, SELFPAY ==
[2020-01-23 01:33] LABS: Add Manual Diff / Slide Review NO; Basophils Absolute Auto 100 /uL (0-100); Basophils Percent Auto 0.8 % (0-2); Eosinophils Absolute Auto 0 /uL (0-450); Eosinophils Percent Auto 0.3 % (2-4); Hemoglobin 11.2 g/dL (12.0-16.0); Lymphocytes Absolute Auto 3000 /uL (1100-4500); Lymphocytes Percent Auto 23.9 % (25-40); Mean Corpuscular HGB Conc 32.8 % (30-36); Mean Corpuscular Hemoglobin 27.6 PG (26-34); Monocytes Absolute Auto 1000 /uL (0-900); Neutrophils Absolute Auto 8300 /uL (1500-7000); Platelet Count 224 X10^3/uL (150-400); Red Blood Cell Count 4.05 X10^6/uL (4.0-5.2); Red Cell Distribution Width 13.8 % (11.6-14.8); White Blood Cell Count 12.5 X10^3/uL (4.5-11.0)
[2020-01-23 01:58] LABS: COVID19 -Nasal RAPID Negative (Negative)
--- NOTE | 2020-01-23 02:03 | P.HP_ITS ---
History of Present Illness History of Present Illness Date Patient Seen: 01/23/20 Time Patient Seen: 02:04 Chief complaint: evaluation of labor Narrative: 29-year-old female G3 para 2 estimated due date of 01/29/2020 at 39 and 1 7 days. Patient's started approximately 7 weeks gestational age. She had good routine follow-up during the . Patient had no specific concerning care problems. Patient's labs hemoglobin 13.7 hematocrit 39.8 platelet count 307 1 hour glucose 138 quad screen within normal limits TSH within normal limits RPR negative hepatitis-B surface antigen negative hepatitis C negative HIV negative rubella immune GBS negative varicella immune blood type O-positive antibody negative. Normal 20 week ultrasound. Patient had a weight gain of approximately 30 lb during the . Patient started having contractions this evening about 10 or 10 30 in the evening. Contractions were [id number] intensity in gradually progressed uncomfortable. Impression presented to the labor and delivery for an active labor at approximately 7 cm with intact membranes normal vital signs. She was afebrile. COVID test was negative. Normal platelet count on arrival. Mildly elevated white blood cell count normal hemoglobin hematocrit. Patient was kassidy upper could comfortably in requesting an epidural. heart tones were category 1. Patient History Medical History Healthy female adult (Chronic) (spontaneous vaginal delivery) (Acute) Family & Social History Social History: household members family,children Tobacco & Substance use: Smoking Status Never smoker Substance Use Type does not use Meds Home Medications and Allergies Home Medications Medication Instructions Recorded Confirmed Type vitamin-ferrous fumarate 1 cap PO QDAY #30 cap 06/19/19 01/22/20 Rx 65 mg iron-folic acid 1 mg capsule Allergies Allergy/AdvReac Type Severity Reaction Status Date / Time dicloxacillin Allergy Intermediate Rash Verified 01/22/20 08:41 Exam Vital Signs (past 8 hours): . General: Alert no apparent distress. Affect is appropriate. Kassidy it is uncomfortable. HEENT: Neck is supple without lymphadenopathy pupils equal round and reactive. Cardio: S1-S2 regular rate and rhythm. Respiratory: Lungs clear to auscultation. Abdomen: Gravid. Extremities: Normal deep tendon reflexes trace edema. ; intact 9 cm bulging bag [place]: Kassidy every 3-5 minutes hard in strength heart tones: Category 1 with heart tones 130s to 140s Objective Labs Result Diagrams: 01/23/20 01:20 Labs: Laboratory Results - last 24 hr 01/23/20 01/23/20 01/23/20 01:10 01:20 01:20 WBC 12.5 H RBC 4.05 Hgb 11.2 L Hct 34.0 L MCV 84.0 MCH 27.6 MCHC 32.8 RDW 13.8 Plt Count 224 Neut % (Auto) 67.0 Lymph % (Auto) 23.9 L [place] % (Auto) 8.0 Eos % (Auto) 0.3 L Baso % (Auto) 0.8 Neut # (Auto) 8300 H Lymph # (Auto) 3000 [place] # (Auto) 1000 H Eos # (Auto) 0 Baso # (Auto) 100 COVID-19 PCR Negative Blood Type O Positive Antibody Screen Negative Assessment & Plan Assessment & Plan narrative: 29-year-old female G3 para 2 39 weeks 1 day gestational age in active labor. Patient requesting epidural. Patient's vital signs are stable category 1 tracing. Labor admission orders were written for consents were obtained. heart tone tracing per protocol. Epidural IV fluid blood counts are stable GBS and COVID are negative. Active management
[2020-01-23] MEDS: OXYTOCIN PREMIX 30 UNIT/500 ML PLAST..BAG 300 UNIT IV (02:35)
--- NOTE | 2020-01-23 02:42 | PM.PROC.1 ---
Procedures Date/Time Date of procedure: 01/23/20 Time of procedure: 02:42 General Procedure description: Delivery of viable female Stage I of labor approximately 6 hours. Patient presented to the labor and delivery for an active labor at 7 cm. heart tones were reassuring vital signs are stable. Patient rapidly progressed to complete. There was a trial of an epidural. Patient did not have much relief from the epidural that was provided. She had ruptures of membranes when she had an anterior lip of clear fluid. During stage I of labor vital signs were stable. Patient was kassidy on comfortably but made good progress. While here in the center. Patient's COVID test was negative. Stage II of labor approximately 10 minutes. Patient pushed to complete a viable female in vertex position occiput posterior. Baby made good progress during the 2nd stage of labor rather rapid. heart tone tracing were normal during this stage. Mom's vital signs were stable throughout. Pain relief was suboptimal due to nonfunctioning epidural. At the delivery of head and shoulders baby was placed on mother's abdomen. Baby had spontaneous crying was vigorous. Patient had delayed cord clamping. Stage III of labor approximately 5 minutes. Delivery of intact placenta with three-vessel cord. Inspection of vagina sewed no vaginal lacerations or tears. Cervix was intact. Uterus was firm. Bleeding was mild to moderate mom's blood pressure vitals were stable. Baby and mom resting comfortably after.
[2020-01-23] MEDS: ACETAMINOPHEN 325 MG TABLET 650 MG PO (03:42)
[2020-01-23] MEDS: IBUPROFEN 600 MG TABLET PO ×4 (03:43→22:18)
[2020-01-23] MEDS: HYDROCODONE/ACET 5/325 TABLET 1 TAB PO ×4 (04:54→18:40)
[2020-01-23 06:51] VITALS: BP 117/63
[2020-01-23] MEDS: PRENATAL VIT,CALC/IRON/FOLIC 1 TABLET 1 TAB PO (10:09)
[2020-01-23] MEDS: DOCUSATE 100 MG CAPSULE PO (10:10)
[2020-01-24] MEDS: IBUPROFEN 600 MG TABLET PO (04:23)
[2020-01-24 07:03] LABS: Hematocrit 30.6 % (36-46); Hemoglobin 10.2 g/dL (12.0-16.0)
--- NOTE | 2020-01-24 08:34 | PM.DS.1 ---
History of Present Illness History of Present Illness Chief complaint: MATERNITY Narrative: 29-year-old female G3 para 2 estimated due date of 01/29/2020 at 39 and 1 7 days. Patient's started approximately 7 weeks gestational age. She had good routine follow-up during the . Patient had no specific concerning care problems. Patient's labs hemoglobin 13.7 hematocrit 39.8 platelet count 307 1 hour glucose 138 quad screen within normal limits TSH within normal limits RPR negative hepatitis-B surface antigen negative hepatitis C negative HIV negative rubella immune GBS negative varicella immune blood type O-positive antibody negative. Normal 20 week ultrasound. Patient had a weight gain of approximately 30 lb during the . Patient started having contractions this evening about 10 or 10 30 in the evening. Contractions were [id number] intensity in gradually progressed uncomfortable. Impression presented to the labor and delivery for an active labor at approximately 7 cm with intact membranes normal vital signs. She was afebrile. COVID test was negative. Normal platelet count on arrival. Mildly elevated white blood cell count normal hemoglobin hematocrit. Patient was kassidy upper could comfortably in requesting an epidural. heart tones were category 1. Discharge Providers Provider Date of admission: 01/23/20 00:55 Discharge Date: 01/24/20 Primary care physician: Rogre Orellana MD Consults: 01/24/20 02:45 Consult to [employer] Operator Routine Comment: Discharge provider: Roger Orellana MD Summary Hospital Course Discharge Diagnosis: 29-year-old G3 para 3 at term presented in active labor and delivery of viable female infant Hospital Course: Postoperative day 1. Patient was ambulating eating well tolerating pain bleeding was well controlled. Vital signs were stable hemoglobin hematocrit was stable. Had normal urination no bowel movement Postoperative day 2. Afebrile. Tolerating pain with ibuprofen stool softeners taking vitamins breast-feeding was going well. Bleeding vital signs were stable as well as hemoglobin hematocrit some mild foot swelling and mild back discomfort. Objective Labs Result Diagrams: 01/24/20 06:46 Labs: Laboratory Results - last 24 hr 01/24/20 06:46 Hgb 10.2 L Hct 30.6 L Discharge Plan Discharge Plan Patient Disposition: Home Discharge orders & Medications Prescriptions: New hydrocodone-acetaminophen 5-325 mg Tablet 1 tab PO Q4HR PRN (Reason: Pain, Moderate (4-6)) Qty: 20 RF: 0 docusate sodium [DOK] 100 mg Capsule 100 mg PO DAILY Qty: 20 RF: 0 Prenatabs Rx 29 mg iron- 1 mg Tablet 1 tab PO DAILY Qty: 90 RF: 0 ibuprofen 600 mg Tablet 600 mg PO Q6HR PRN (Reason: Pain, Mild (1-3)) Qty: 30 RF: 0 Discontinued Mynatal 65 mg iron- 1 mg capsule 1 cap PO QDAY Qty: 30 RF: 12 Follow up/Referrals: Roger Orellana MD [Primary Care Provider] - Diet/Activity/Treatments Diet: Diet as Tolerated Activity: As tolereated Skin/Wound/Dressing Care Report to your healthcare provider any signs of infection, such as:: chills, fever, night sweats, increased pain and unusual drainage Visit Report/Discharge Packet Visit Report Forms: Patient Portal/API, Stroke Signs & Symptoms Discharge Data Primary Care Provider: Roger Orellana
[2020-01-24 08:51] VITALS: BP 106/67; PULSE 68; RESP 16; TEMP 36.7
== END 2020-01-23 10:45 | disposition home or self-care (01) | DRG 560 ==
PROVIDERS: Admitting Provider Family Medicine; PCP Family Medicine; Referring Provider Family Medicine; Visit Provider Family Medicine
DX: O80 Encounter for full-term uncomplicated delivery (principal); Z11.59 Encounter for screening for other viral diseases; Z3A.39 39 weeks gestation of pregnancy; Z37.0 Single live birth
CPT/HCPCS: 01967; 36415; 59050; 59409; 85014; 85018; 85025; 86850; 86900; 86901; 87635; G0379; J2590

== ENCOUNTER → 2020-04-29 14:48 | Outpatient (CLI) | payer OTHER, MEDICAID, SELFPAY ==
[2020-04-29 15:08] LABS: COVID19 -Nasal RAPID POSITIVE (Negative)
== END ==
PROVIDERS: PCP Family Medicine; Visit Provider Family Medicine
DX: U07.1 COVID-19 (principal)
CPT/HCPCS: 87635

== ENCOUNTER 2020-09-02 11:00 | Outpatient (RCR) | payer OTHER, MEDICAID, SELFPAY ==
--- NOTE | 2020-08-22 16:00 | PT.OPPOC ---
Physical, Occupational & Speech Therapy At [facility] Current Diagnoses Cervicalgia (08/22/20) Low back pain (08/22/20) Visit Care Team Role Provider Type Roger Orellana MD Attending Provider Physician Primary Care Provider Referring Provider Specialty: Family Practice Address: [address] [place] [address], [id number] Email: [email or web address] Plan Of Care PT-OP-T Assessment and Plan Start: 08/22/20 11:08 Freq: Status: Active Protocol: Document 08/22/20 13:30 AMB (Rec: 08/24/20 10:16 AMB [id number]) Physical Therapy Assessment Rehab Potential Rehabilitation Potential Good Evaluation Complexity Number of Personal Factors/Comorbidities 1-2 Number of Body Systems Impaired 3 Clinical Presentation at Evaluation Stable Impairments Impairments Functional Activities,Pain, Posture Goals Three Impairment Standing Short Term Goal (STG) 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 STG Duration 5 weeks [employer] Goal (LTG) Leigh will hold her daughter while standing for 20 minutes with back pain of 2/ 10 or less. LTG Duration 10 weeks Two Impairment Sleep Short Term Goal (STG) Leigh will sleep for 4 hours without being woken due to pain. STG Duration 5 weeks One Impairment Pain Short Term Goal (STG) Leigh will be independent with a HEP to stabilize her core and consistent with the program. STG Duration 5 weeks [employer] Goal (LTG) Leigh will report a maximum of 2/10 back pain or less. 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 She did have mild diastasis recti, as well as R anterior rotated pelvic innominate, and will benefit from physical therapy to provide guidance in her exercise routine, body mechanics. Despite her feeling of stiffness she is actually quite flexible and has good joint mobility. We will work to decrease her back and neck pain, and find a more comfortable position for her to sleep in as this is likely an exacerbating factor and started around the same time as her pain. Physical Therapy Plan Frequency and Duration Frequency of Treatment 1x/Week Duration of Treatment 10 weeks Plan of Care Start Date 08/22/20 Plan of Care End Date 10/31/20 Therapeutic Interventions Therapeutic Interventions Home Exercise Program,Joint Mobilizations,Manual Therapy, Neuromuscular Re-education, Self-Care/Home Management, Taping,Therapeutic Activities, Therapeutic Exercises Modalities Cold Pack/Ice Massage,Electric Stimulation,Hot Packs Next Visit Focus/Plan Next Note Type Treatment Note Next Visit Plan Reassess taping, continue to educate in TA stabilization, discuss sleeping postures Plan of Care Dates Plan of Care Start Date 08/22/20 Plan of Care End Date 10/31/20 Electronically Signed by: Renata Morales, PT 08/24/20 1013 Please Sign and Return: I have reviewed this Plan of Care and certify that the skilled therapy services above are required to meet the patient?s needs. Physician Signature Date Printed Name and Credentials Clinical Instructor Signature Printed Name and Credentials
--- NOTE | 2020-08-22 16:00 | PT.OIE ---
Current Diagnoses Cervicalgia (08/22/20) Low back pain (08/22/20) Past Medical History (Last Reviewed 07/02/20 @ 20:17 by Pat Rivera PA-C) Healthy female adult (spontaneous vaginal delivery) Visit Care Team Role Provider Type Roger Orellana MD Attending Provider Physician Primary Care Provider Referring Provider Specialty: [facility] Practice Address: [address] [place] [address], [facility] Email: [email or web address] Physical Therapy Initial Evaluation PT-OP-A Visit Information Start: 08/22/20 11:08 Freq: Status: Active Protocol: Document 08/22/20 13:30 AMB (Rec: 08/24/20 10:16 AMB [email or web address]) Out-Patient Physical Therapy Visit Information Visit Information Visit Type Initial Evaluation Visit Start Time 13:30 Visit Stop Time 14:15 Total Visit Minutes 45 Visit Number 1 PT-OP-B Current Condition Start: 08/22/20 11:08 Freq: Status: Active Protocol: Document 08/22/20 13:30 AMB (Rec: 08/22/20 13:42 AMB [id number]) Current Condition History of Current Condition Onset Date 1 month ago Current Complaints Low back>neck pain History of Current Condition 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 Had a baby 6 months ago, was recovering well then 1 month ago seemingly without provoking incident low back pain started. She is sleeping with 6 month old and nursing while sidelying increases pain (stiffness, feels like it needs to pop). 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 Feels like back is strained all the time. Holding the baby increases the pain. January 21 didn't get an epidural and felt that was traumatic. Has been working out every day max lift 5# 30 min a day. has been modifiying due to pain has been doing it since 4 weeks post and was not previously painful. Denies radiating pain/numbness/ tingling/weakness/urinary sx. Treatment Goals Patient/Caregiver Goals reduce pain Prior Functional Status Baseline Function- ADL's Independent Baseline Function- Mobility Independent Current Functional Impairments (Reported) Functional Limitations- ADL's Difficulty holding baby, sleeping due to pain Personal Factors Other Personal Factors That May Effect Single mom of 3 children, Therapy/Recovery recently , previous back injury PT-OP-C Subjective Start: 08/22/20 11:08 Freq: Status: Active Protocol: Document 08/22/20 13:30 AMB (Rec: 08/24/20 10:16 AMB [email or web address]) Patient Questionnaires Neck Disability Index NDI Score 11 Neck Disability Index Impairment 20 to 39% Impaired (Score 10- 19) Oswestry Low Back Index Oswestry Score 16 Oswestry Impairment 1 to 19% Impaired (Score 1-19) Quick Dash- Upper Extremity Quick Dash UE Score 14 Quick Dash UE Impairment 1 to 19% Impaired (Score 1-19) OP-PT Pain Assessment Comments Pain Comments 6/10 pain at low back, 4/10 at midback and neck PT-OP-J Posture/Palpation/Skin Start: 08/22/20 11:08 Freq: Status: Active Protocol: Document 08/22/20 13:30 AMB (Rec: 08/24/20 10:16 AMB [email or web address]) Posture Evaluation Comments Posture Comments Good lordotic curve, increased thoracic kyphosis Palpation Assessment Location One Palpation Location Low back Palpation Details Good spring to PAs, mild muscle spasm at paraspinals at low back PT-OP-K Range of Motion Start: 08/22/20 11:08 Freq: Status: Active Protocol: Document 08/22/20 13:30 AMB (Rec: 08/24/20 10:16 AMB [email or web address]) Lumbar Spine Range of Motion Lumbar Spine Active Degrees Testing Position Standing Flexion 50 Extension 30 Lateral Flexion Left 25 Lateral Flexion Right 25 PT-OP-L Special Tests Start: 08/22/20 11:08 Freq: Status: Active Protocol: Document 08/22/20 13:30 AMB (Rec: 08/24/20 10:16 AMB [email or web address]) Special Tests Other Special Tests Special Tests 2 finger width diastasis recti below umbilicus, 1.5 above PT-OP-M Strength Start: 08/22/20 11:08 Freq: Status: Active Protocol: Document 08/22/20 13:30 AMB (Rec: 08/24/20 10:16 AMB [email or web address]) Hip Strength Hip Manual Muscle Testing Right Flexion (L2) 5 Normal Extension (S1) 4+ Good+ Abduction 4+ Good+ Left Flexion (L2) 5 Normal Extension (S1) 4+ Good+ Abduction 4+ Good+ Knee Strength Knee Manual Muscle Testing Right Flexion (S2) 5 Normal Extension (L3) 5 Normal Left Flexion (S2) 5 Normal Extension (L3) 5 Normal PT-OP-Q Treatments Start: 08/22/20 11:08 Freq: Status: Active Protocol: Document 08/22/20 13:30 AMB (Rec: 08/24/20 10:16 AMB [email or web address]) Manual Therapy Treatment Taping 1 Body Location abdomen Type of Tape Kinesio Tape Comments herringbone pattern for diastasis PT-OP-T Assessment and Plan Start: 08/22/20 11:08 Freq: Status: Active Protocol: Document 08/22/20 13:30 AMB (Rec: 08/24/20 10:16 AMB [email or web address]) Physical Therapy Assessment Rehab Potential Rehabilitation Potential Good Evaluation Complexity Number of Personal Factors/Comorbidities 1-2 Number of Body Systems Impaired 3 Clinical Presentation at Evaluation Stable Impairments Impairments Functional Activities,Pain, Posture Goals Three Impairment Standing Short Term Goal (STG) 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 STG Duration 5 weeks Halfway Goal (LTG) Leigh will hold her daughter while standing for 20 minutes with back pain of 2/ 10 or less. LTG Duration 10 weeks Two Impairment Sleep Short Term Goal (STG) Leigh will sleep for 4 hours without being woken due to pain. STG Duration 5 weeks One Impairment Pain Short Term Goal (STG) Leigh will be independent with a HEP to stabilize her core and consistent with the program. STG Duration 5 weeks Halfway Goal (LTG) Leigh will report a maximum of 2/10 back pain or less. 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 She did have mild diastasis recti, as well as R anterior rotated pelvic innominate, and will benefit from physical therapy to provide guidance in her exercise routine, body mechanics. Despite her feeling of stiffness she is actually quite flexible and has good joint mobility. We will work to decrease her back and neck pain, and find a more comfortable position for her to sleep in as this is likely an exacerbating factor and started around the same time as her pain. Physical Therapy Plan Frequency and Duration Frequency of Treatment 1x/Week Duration of Treatment 10 weeks Plan of Care Start Date 08/22/20 Plan of Care End Date 10/31/20 Therapeutic Interventions Therapeutic Interventions Home Exercise Program,Joint Mobilizations,Manual Therapy, Neuromuscular Re-education, Self-Care/Home Management, Taping,Therapeutic Activities, Therapeutic Exercises Modalities Cold Pack/Ice Massage,Electric Stimulation,Hot Packs Next Visit Focus/Plan Next Note Type Treatment Note Next Visit Plan Reassess taping, continue to educate in TA stabilization, discuss sleeping postures
--- NOTE | 2020-08-25 09:35 | PT.OTN ---
Current Diagnoses Cervicalgia (08/25/20) Low back pain (08/25/20) Physical Therapy Treatment Note PT-OP-A Visit Information Start: 08/22/20 11:08 Freq: Status: Active Protocol: Document 08/25/20 07:30 AMB (Rec: 08/25/20 09:22 AMB [id number]) Out-Patient Physical Therapy Visit Information Visit Information Visit Type Treatment Note Visit Start Time 07:30 Visit Stop Time 08:15 Total Visit Minutes 45 Visit Number 2 PT-OP-B Current Condition Start: 08/22/20 11:08 Freq: Status: Active Protocol: Document 08/22/20 13:30 AMB (Rec: 08/22/20 13:42 AMB [id number]) Current Condition History of Current Condition Onset Date 1 month ago Current Complaints Low back>neck pain History of Current Condition 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 Had a baby 6 months ago, was recovering well then 1 month ago seemingly without provoking incident low back pain started. She is sleeping with 6 month old and nursing while sidelying increases pain (stiffness, feels like it needs to pop). 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 Feels like back is strained all the time. Holding the baby increases the pain. January 21 didn't get an epidural and felt that was traumatic. Has been working out every day max lift 5# 30 min a day. has been modifiying due to pain has been doing it since 4 weeks post and was not previously painful. Denies radiating pain/numbness/ tingling/weakness/urinary sx. Treatment Goals Patient/Caregiver Goals reduce pain Prior Functional Status Baseline Function- ADL's Independent Baseline Function- Mobility Independent Current Functional Impairments (Reported) Functional Limitations- ADL's Difficulty holding baby, sleeping due to pain Personal Factors Other Personal Factors That May Effect Single mom of 3 children, Therapy/Recovery recently , previous back injury PT-OP-C Subjective Start: 08/22/20 11:08 Freq: Status: Active Protocol: Document 08/25/20 07:30 AMB (Rec: 08/25/20 09:34 AMB [email or web address]) OP-PT Subjective Patient Comments Patient Comments Feeling about the same. Tape was helpful to remind to keep abs in. PT-OP-J Posture/Palpation/Skin Start: 08/22/20 11:08 Freq: Status: Active Protocol: Document 08/22/20 13:30 AMB (Rec: 08/24/20 10:16 AMB [email or web address]) Posture Evaluation Comments Posture Comments Good lordotic curve, increased thoracic kyphosis Palpation Assessment Location One Palpation Location Low back Palpation Details Good spring to PAs, mild muscle spasm at paraspinals at low back PT-OP-K Range of Motion Start: 08/22/20 11:08 Freq: Status: Active Protocol: Document 08/22/20 13:30 AMB (Rec: 08/24/20 10:16 AMB [email or web address]) Lumbar Spine Range of Motion Lumbar Spine Active Degrees Testing Position Standing Flexion 50 Extension 30 Lateral Flexion Left 25 Lateral Flexion Right 25 PT-OP-L Special Tests Start: 08/22/20 11:08 Freq: Status: Active Protocol: Document 08/22/20 13:30 AMB (Rec: 08/24/20 10:16 AMB [email or web address]) Special Tests Other Special Tests Special Tests 2 finger width diastasis recti below umbilicus, 1.5 above PT-OP-M Strength Start: 08/22/20 11:08 Freq: Status: Active Protocol: Document 08/22/20 13:30 AMB (Rec: 08/24/20 10:16 AMB [email or web address]) Hip Strength Hip Manual Muscle Testing Right Flexion (L2) 5 Normal Extension (S1) 4+ Good+ Abduction 4+ Good+ Left Flexion (L2) 5 Normal Extension (S1) 4+ Good+ Abduction 4+ Good+ Knee Strength Knee Manual Muscle Testing Right Flexion (S2) 5 Normal Extension (L3) 5 Normal Left Flexion (S2) 5 Normal Extension (L3) 5 Normal PT-OP-Q Treatments Start: 08/22/20 11:08 Freq: Status: Active Protocol: Document 08/25/20 07:30 AMB (Rec: 08/25/20 09:34 AMB [email or web address]) Therapeutic Exercises Supine Exercises 1 Supine Exercise Name table top tap down Comments with TA Other Exercises 2 Other Exercise Name bird dog Reps/Minutes 2x10 Comments vc TA 1 Other Exercise Name dexter pose with lateral stretch Reps/Minutes 30x2 Manual Therapy Treatment Soft Tissue Mobilization 1 Body Location paraspinals/QL Intensity/Depth Moderate Body Position Prone Joint Mobilizations 1 Joint Lumbar/low thoracic Direction PA Grade III Body Position Prone Manual Traction long axis Details L then bilateral Body Position Supine PT-OP-R Modalities Start: 08/22/20 11:08 Freq: Status: Active Protocol: Document 08/25/20 07:30 AMB (Rec: 08/25/20 09:35 AMB [email or web address]) Electric Stimulation Electric Stimulation Interferential Current (IFC) Body Location low back Duration (Minutes) 15 Combined With Heat/Cold Hot Pack PT-OP-T Assessment and Plan Start: 08/22/20 11:08 Freq: Status: Active Protocol: Document 08/25/20 07:30 AMB (Rec: 08/25/20 09:34 AMB [email or web address]) Physical Therapy Assessment Assessment Summary Assessment Leigh has been doing ab exercises that are too advanced, she is coning, so we gave her new exercises that are more appropriate for her. Explained importance of sleeping postures. Physical Therapy Plan Next Visit Focus/Plan Next Note Type Treatment Note Next Visit Plan Reassess taping, continue to educate in TA stabilization, follow up on sleeping postures
--- NOTE | 2020-09-02 15:46 | PT.OTN ---
Current Diagnoses Cervicalgia (09/02/20) Low back pain (09/02/20) Physical Therapy Treatment Note PT-OP-A Visit Information Start: 08/22/20 11:08 Freq: Status: Active Protocol: Document 09/02/20 11:00 AMB (Rec: 09/02/20 11:13 AMB [id number]) Out-Patient Physical Therapy Visit Information Visit Information Visit Type Treatment Note Visit Start Time 11:00 Visit Stop Time 11:45 Total Visit Minutes 45 Visit Number 3 PT-OP-B Current Condition Start: 08/22/20 11:08 Freq: Status: Active Protocol: Document 08/22/20 13:30 AMB (Rec: 08/22/20 13:42 AMB [id number]) Current Condition History of Current Condition Onset Date 1 month ago Current Complaints Low back>neck pain History of Current Condition 2 years ago had an L&I claim as a [employer] / [employer] due to back pain, but felt it fully resolved. Had a baby 6 months ago, was recovering well then 1 month ago seemingly without provoking incident low back pain started. She is sleeping with 6 month old and nursing while sidelying increases pain (stiffness, feels like it needs to pop). 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 Feels like back is strained all the time. Holding the baby increases the pain. January 21 didn't get an epidural and felt that was traumatic. Has been working out every day max lift 5# 30 min a day. has been modifiying due to pain has been doing it since 4 weeks post and was not previously painful. Denies radiating pain/numbness/ tingling/weakness/urinary sx. Treatment Goals Patient/Caregiver Goals reduce pain Prior Functional Status Baseline Function- ADL's Independent Baseline Function- Mobility Independent Current Functional Impairments (Reported) Functional Limitations- ADL's Difficulty holding baby, sleeping due to pain Personal Factors Other Personal Factors That May Effect Single mom of 3 children, Therapy/Recovery recently , previous back injury PT-OP-C Subjective Start: 08/22/20 11:08 Freq: Status: Active Protocol: Document 09/02/20 11:00 AMB (Rec: 09/02/20 11:13 AMB [id number]) OP-PT Subjective Patient Comments Patient Comments Pt states her 2 year old is sleeping in her own bed now, so there is more room. She felt better the rest of the day after PT, but stiffness continues. PT-OP-J Posture/Palpation/Skin Start: 08/22/20 11:08 Freq: Status: Active Protocol: Document 08/22/20 13:30 AMB (Rec: 08/24/20 10:16 AMB [email or web address]) Posture Evaluation Comments Posture Comments Good lordotic curve, increased thoracic kyphosis Palpation Assessment Location One Palpation Location Low back Palpation Details Good spring to PAs, mild muscle spasm at paraspinals at low back PT-OP-K Range of Motion Start: 08/22/20 11:08 Freq: Status: Active Protocol: Document 08/22/20 13:30 AMB (Rec: 08/24/20 10:16 AMB [email or web address]) Lumbar Spine Range of Motion Lumbar Spine Active Degrees Testing Position Standing Flexion 50 Extension 30 Lateral Flexion Left 25 Lateral Flexion Right 25 PT-OP-L Special Tests Start: 08/22/20 11:08 Freq: Status: Active Protocol: Document 08/22/20 13:30 AMB (Rec: 08/24/20 10:16 AMB [email or web address]) Special Tests Other Special Tests Special Tests 2 finger width diastasis recti below umbilicus, 1.5 above PT-OP-M Strength Start: 08/22/20 11:08 Freq: Status: Active Protocol: Document 08/22/20 13:30 AMB (Rec: 08/24/20 10:16 AMB [email or web address]) Hip Strength Hip Manual Muscle Testing Right Flexion (L2) 5 Normal Extension (S1) 4+ Good+ Abduction 4+ Good+ Left Flexion (L2) 5 Normal Extension (S1) 4+ Good+ Abduction 4+ Good+ Knee Strength Knee Manual Muscle Testing Right Flexion (S2) 5 Normal Extension (L3) 5 Normal Left Flexion (S2) 5 Normal Extension (L3) 5 Normal PT-OP-Q Treatments Start: 08/22/20 11:08 Freq: Status: Active Protocol: Document 09/02/20 11:00 AMB (Rec: 09/02/20 15:45 AMB [email or web address]) Therapeutic Exercises Supine Exercises 2 Supine Exercise Name foam roll Comments horiz. abd/add, then tap downs 1 Supine Exercise Name table top tap down Comments with TA Other Exercises 2 Other Exercise Name bird dog Reps/Minutes 2x10 Comments vc TA Manual Therapy Treatment Soft Tissue Mobilization 1 Body Location paraspinals/QL Intensity/Depth Moderate Body Position Prone Comments instruction in self tennis ball rolling. Joint Mobilizations 1 Joint Lumbar/low thoracic Direction PA Grade III Body Position Prone Manual Traction long axis Details L then bilateral Body Position Supine PT-OP-R Modalities Start: 08/22/20 11:08 Freq: Status: Active Protocol: Document 08/25/20 07:30 AMB (Rec: 08/25/20 09:35 AMB [email or web address]) Electric Stimulation Electric Stimulation Interferential Current (IFC) Body Location low back Duration (Minutes) 15 Combined With Heat/Cold Hot Pack PT-OP-T Assessment and Plan Start: 08/22/20 11:08 Freq: Status: Active Protocol: Document 09/02/20 11:00 AMB (Rec: 09/02/20 15:45 AMB [email or web address]) Physical Therapy Assessment Assessment Summary Assessment Discussed lumbar lordosis posture, and tucking tailbone under to have flatter lumbar spine in stance and with squats. Pt did well with tennis ball rolling. Physical Therapy Plan Next Visit Focus/Plan Next Note Type Treatment Note Next Visit Plan continue TA stabilization
--- NOTE | 2020-09-12 15:54 | PT.OPDS ---
Current Diagnoses Cervicalgia (09/02/20) Low back pain (09/02/20) Visit Care Team Role Provider Type Roger Orellana MD Attending Provider Physician Primary Care Provider Referring Provider Specialty: Family Practice Address: [address] [place] [address], [facility] Email: [email or web address] Visit Number Visit Number 3 Discharge Summary PT-OP-B Current Condition Start: 08/22/20 11:08 Freq: Status: Active Protocol: Document 08/22/20 13:30 AMB (Rec: 08/22/20 13:42 AMB [id number]) Current Condition History of Current Condition Onset Date 1 month ago Current Complaints Low back>neck pain History of Current Condition 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 Had a baby 6 months ago, was recovering well then 1 month ago seemingly without provoking incident low back pain started. She is sleeping with 6 month old and nursing while sidelying increases pain (stiffness, feels like it needs to pop). 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 Feels like back is strained all the time. Holding the baby increases the pain. January 21 didn't get an epidural and felt that was traumatic. Has been working out every day max lift 5# 30 min a day. has been modifiying due to pain has been doing it since 4 weeks post and was not previously painful. Denies radiating pain/numbness/ tingling/weakness/urinary sx. Treatment Goals Patient/Caregiver Goals reduce pain Prior Functional Status Baseline Function- ADL's Independent Baseline Function- Mobility Independent Current Functional Impairments (Reported) Functional Limitations- ADL's Difficulty holding baby, sleeping due to pain Personal Factors Other Personal Factors That May Effect Single mom of 3 children, Therapy/Recovery recently , previous back injury PT-OP-C Subjective Start: 08/22/20 11:08 Freq: Status: Active Protocol: Document 09/02/20 11:00 AMB (Rec: 09/02/20 11:13 AMB [id number]) OP-PT Subjective Patient Comments Patient Comments Pt states her 2 year old is sleeping in her own bed now, so there is more room. She felt better the rest of the day after PT, but stiffness continues. PT-OP-J Posture/Palpation/Skin Start: 08/22/20 11:08 Freq: Status: Active Protocol: Document 08/22/20 13:30 AMB (Rec: 08/24/20 10:16 AMB [email or web address]) Posture Evaluation Comments Posture Comments Good lordotic curve, increased thoracic kyphosis Palpation Assessment Location One Palpation Location Low back Palpation Details Good spring to PAs, mild muscle spasm at paraspinals at low back PT-OP-K Range of Motion Start: 08/22/20 11:08 Freq: Status: Active Protocol: Document 08/22/20 13:30 AMB (Rec: 08/24/20 10:16 AMB [email or web address]) Lumbar Spine Range of Motion Lumbar Spine Active Degrees Testing Position Standing Flexion 50 Extension 30 Lateral Flexion Left 25 Lateral Flexion Right 25 PT-OP-L Special Tests Start: 08/22/20 11:08 Freq: Status: Active Protocol: Document 08/22/20 13:30 AMB (Rec: 08/24/20 10:16 AMB [email or web address]) Special Tests Other Special Tests Special Tests 2 finger width diastasis recti below umbilicus, 1.5 above PT-OP-M Strength Start: 08/22/20 11:08 Freq: Status: Active Protocol: Document 08/22/20 13:30 AMB (Rec: 08/24/20 10:16 AMB [email or web address]) Hip Strength Hip Manual Muscle Testing Right Flexion (L2) 5 Normal Extension (S1) 4+ Good+ Abduction 4+ Good+ Left Flexion (L2) 5 Normal Extension (S1) 4+ Good+ Abduction 4+ Good+ Knee Strength Knee Manual Muscle Testing Right Flexion (S2) 5 Normal Extension (L3) 5 Normal Left Flexion (S2) 5 Normal Extension (L3) 5 Normal PT-OP-T Assessment and Plan Start: 08/22/20 11:08 Freq: Status: Active Protocol: Document 09/12/20 15:52 AMB (Rec: 09/12/20 15:54 AMB [email or web address]) Physical Therapy Plan Discharge Physical Therapy Discharge Comments Pt called to cancel her remaining appointments. She was not having a significant reduction in symptoms at her last visit, but was doing core exercises that were beyond what her diastasis recti would allow and had only been seen for 3 appointments.
== END 2020-09-15 08:56 | disposition home or self-care (01) ==
LOC: PHYS 11:00
PROVIDERS: PCP Family Medicine; Referring Provider Family Medicine; Visit Provider Family Medicine
DX: M54.5 Low back pain (principal); M54.2 Cervicalgia
CPT/HCPCS: 97110; 97140; 97161

== ENCOUNTER 2020-11-10 17:47 | Emergency (ER) | payer OTHER, MEDICAID, SELFPAY ==
[2020-11-10 17:55] VITALS: BP 96/59; PULSE 71; RESP 16; O2SAT 97; BMI 22.7
--- NOTE | 2020-11-10 18:00 | DI.RAD.S_ITS ---
PROCEDURE: XR WRIST LT MIN 3V INDICATIONS: burning TECHNIQUE: 5 views of the wrist were acquired. COMPARISON: None. FINDINGS: Bones: No fractures or dislocations. No suspicious bony lesions. Scaphoid view: Normal Soft tissues: No suspicious soft tissue calcifications. IMPRESSION: Normal left wrist and scaphoid bone. Dictated by: Darien Oliver M.D. on 11/10/2020 at 18:11 Approved by: Darien Oliver M.D. on 11/10/2020 at 18:13
--- NOTE | 2020-11-10 19:56 | PC.NURSE ---
Per admitting patient left ER.
== END 2020-11-10 19:58 | disposition left against medical advice (07) ==
PROVIDERS: Emergency Provider Emergency Medicine; PCP Family Medicine
DX: M25.532 Pain in left wrist (principal)
CPT/HCPCS: 73110; 99283

== ENCOUNTER → 2022-10-06 12:28 | Outpatient (CLI) | payer OTHER, MEDICAID, SELFPAY ==
[2022-10-06 13:50] LABS: C-Reactive Protein Quant 0.8 mg/dL (<1.0); Erythrocyte Sedimentation Rate 12 MM/HR (0-20); Rheumatoid Factor < 8.6 IU/mL (<12.0)
[2022-10-08 15:13] LABS: CCP Antibodies IgG/IgA 2 units (0-19)
[2022-10-09 19:36] LABS: ANA Screen, IFA Negative (.)
== END ==
PROVIDERS: PCP Family Medicine; Referring Provider Physician Assistant; Visit Provider Physician Assistant
DX: M25.461 Effusion, right knee (principal); M25.462 Effusion, left knee; M25.561 Pain in right knee; M25.562 Pain in left knee; Z11.59 Encounter for screening for other viral diseases; M54.50 Low back pain, unspecified
CPT/HCPCS: 36415; 85651; 86038; 86140; 86200; 86430; 87522

== ENCOUNTER → 2022-10-25 08:32 | Outpatient (CLI) | payer OTHER, MEDICAID, SELFPAY ==
--- NOTE | 2022-10-25 08:33 | DI.RAD.S_ITS ---
PROCEDURE: XR KNEE RT 3V INDICATIONS: KNEE PAIN TECHNIQUE: 3 views of the knee were acquired. COMPARISON: None. FINDINGS: Bones: No fractures or dislocations. No suspicious bony lesions. Soft tissues: No joint effusion. No suspicious soft tissue calcifications. IMPRESSION: Normal right knee radiographs Approved by: Anshu Munoz M.D. on 10/25/2022 at 13:08
--- NOTE | 2022-10-25 08:33 | DI.RAD.S_ITS ---
PROCEDURE: XR KNEE LT 3V INDICATIONS: KNEE PAIN TECHNIQUE: 3 views of the knee were acquired. COMPARISON: None. FINDINGS: Bones: No fractures or dislocations. No suspicious bony lesions. Soft tissues: No joint effusion. No suspicious soft tissue calcifications. IMPRESSION: Normal left knee radiographs Approved by: Anshu Munoz M.D. on 10/25/2022 at 13:07
== END ==
PROVIDERS: PCP Family Medicine; Referring Provider Anesthesiology; Visit Provider Anesthesiology
DX: S83.242A Other tear of medial meniscus, current injury, left knee, initial encounter (principal); S83.241A Other tear of medial meniscus, current injury, right knee, initial encounter; M25.561 Pain in right knee; M25.562 Pain in left knee; G89.29 Other chronic pain
CPT/HCPCS: 73562; 99214

== ENCOUNTER → 2023-03-23 15:52 | Outpatient (CLI) | payer OTHER, MEDICAID, SELFPAY ==
[2023-03-23 20:13] LABS: Influenza A - CEPHEID Flu A NEGATIVE (NEGATIVE); Influenza B - CEPHEID Flu B NEGATIVE (NEGATIVE); Respiratory Syncytial Virus POSITIVE (Negative)
[2023-03-23 20:29] LABS: COVID-19 CEPHEID 4-PLEX PCR Negative (Negative)
== END ==
PROVIDERS: PCP Family Medicine; Visit Provider Physician Assistant
DX: R05.1 Acute cough (principal)
CPT/HCPCS: 0241U

== ENCOUNTER → 2024-04-04 16:30 | Outpatient (CLI) | payer OTHER, SELFPAY ==
[2024-04-04 17:20] LABS: HEMOLYSIS < 15 (0-50); Iron 63 ug/dL (37-170)
[2024-04-04 17:31] LABS: Percent Iron Saturation 22 % (15-50); Total Iron Binding Capacity 282 ug/dL (265-497); Transferrin 262 mg/dL (206-381)
[2024-04-04 17:37] LABS: Vitamin D 25 Hydroxy (D3) 14.2 ng/mL (30.0-100.0)
[2024-04-04 17:52] LABS: TSH w/ Reflex to FT4 0.29 uIU/mL (0.47-4.68)
[2024-04-04 17:54] LABS: Ferritin 12 ng/mL (6-137)
[2024-04-04 18:12] LABS: Vitamin B12 836 pg/mL (239-931)
[2024-04-04 18:35] LABS: Free T4, Direct Thyroxine 1.11 ng/dL (0.78-2.19)
== END ==
LOC: LAB 16:31
PROVIDERS: PCP Family Medicine; Referring Provider Physician Assistant; Visit Provider Physician Assistant
DX: R53.83 Other fatigue (principal); R06.09 Other forms of dyspnea; E55.9 Vitamin D deficiency, unspecified; E53.8 Deficiency of other specified B group vitamins
CPT/HCPCS: 36415; 82306; 82607; 82728; 83540; 83550; 84439; 84443

== ENCOUNTER → 2024-04-10 16:28 | Outpatient (CLI) | payer OTHER, SELFPAY ==
--- NOTE | 2024-04-10 16:29 | DI.US.S_ITS ---
PROCEDURE: US THYROID INDICATIONS: Fatigue; possible thyroid enlargement TECHNIQUE: Real-time scanning was performed of the thyroid gland, with image documentation. COMPARISON: None. FINDINGS: Thyroid: Right lobe measures 4.7 x 1.2 x 1.2 cm. Left lobe measures 4.6 x 1.2 x 1.1 cm. Isthmus is 0.3 cm thick. Echotexture is homogeneous. IMPRESSION: Normal thyroid. No enlargement. No nodules. Dictated by: Vitaliy Khanna M.D. on 04/11/2024 at 12:05 Approved by: Vitaliy Khanna M.D. on 04/11/2024 at 12:08
== END ==
PROVIDERS: PCP Family Medicine; Referring Provider Physician Assistant; Visit Provider Physician Assistant
DX: R53.83 Other fatigue (principal); E04.9 Nontoxic goiter, unspecified
CPT/HCPCS: 76536